=== PATIENT | male | born 1950 | race Caucasian/White ===

== ENCOUNTER → 2017-12-31 08:54 | Outpatient (CLI) | payer OTHER, SELFPAY ==
[2017-12-31 10:44] LABS: Add Manual Diff / Slide Review NO; Basophils Percent Auto 0.8 % (0-2); Eosinophils Percent Auto 2.3 % (2-4); Hematocrit 42.6 % (41-53); Hemoglobin 14.7 g/dL (13.5-17.5); Lymphocytes Percent Auto 21.3 % (25-40); Mean Corpuscular HGB Conc 34.4 % (30-36); Mean Corpuscular Volume 90.2 fL (80-100); Monocytes Percent Auto 8.7 % (3-14); Neutrophils Absolute Auto 4200 /uL (3000-5900); Neutrophils Percent Auto 66.9 % (50-75); Platelet Count 221 X10^3/uL (150-400); Red Blood Cell Count 4.72 X10^6/uL (4.5-5.9); Red Cell Distribution Width 13.3 % (11.6-14.8); White Blood Cell Count 6.2 X10^3/uL (4.5-11.0)
[2017-12-31 11:51] LABS: Blood Urea Nitrogen 16 mg/dL (9-20); Calcium 9.6 mg/dL (8.4-10.2); Carbon Dioxide 28 mmol/L (22-32); Chloride 103 mmol/L (98-107); Cholesterol 222 mg/dL (140-199); Estimated Glomerular Filt Rate > 60.0 mL/min (>60); Glucose 93 mg/dL (80-110); HDL Cholesterol 83 mg/dL (40-60); HEMOLYSIS < 15 (0-50); LDL Cholesterol Calculated 125 mg/dL (<100); Sodium 143 mmol/L (137-145); Triglycerides 71 mg/dL (35-150)
[2017-12-31 12:13] LABS: Prostate Specific Antigen Scrn 0.845 ng/mL (0.1-4.0)
== END ==
PROVIDERS: PCP Family Medicine; Visit Provider Family Medicine
DX: E78.2 Mixed hyperlipidemia (principal); N40.0 Benign prostatic hyperplasia without lower urinary tract symptoms
CPT/HCPCS: 36415; 80048; 80061; 84443; 85025; G0103

== ENCOUNTER 2018-04-23 11:53 | Day surgery (SDC) | payer OTHER, SELFPAY ==
--- NOTE | 2018-04-23 | PATH_ITS ---
[facility] Accession Number: [id number] . 01 Material submitted: . POLYP AT 70CM . 02 Diagnosis: Colon Polyp at 70 cm: Tubular adenoma. MRV/04/27/2018 . 02 Electronically signed: . Boone Montenegro MD, PhD, Pathologist NPI- [id number] . 01 Gross description: . Received in formalin, labeled polyp @70 cm, are two fragments of caldera tissue (0.1 x 0.1 x 0.1 cm and 0.3 x 0.2 x 0.1 cm). Filtered and entirely submitted in cassette A1. ([id number]) /[facility] . 02 Pathologist provided ICD-10: D12.6 . 02 CPT . 823711 Performed at: 01 [facility] [address] [place] [address], [place], [place] [id number] MD Chino Barney MD Phone: [phone] Performed at: 02 [facility] [address] [place], [place] [id number] MD Lebron Villanueva MD Phone: [phone]
[2018-04-23 12:27] VITALS: BP 140/88; PULSE 95; RESP 18; TEMP 36.5; O2SAT 100; BMI 19.5
[2018-04-23] MEDS: SODIUM CHLORIDE 0.9% 1,000 ML 200 ML IV (12:37)
--- NOTE | 2018-04-23 12:57 | P.HP_ITS ---
History of Present Illness Date Patient Seen: 04/23/18 Time Patient Seen: 12:55 Chief complaint: colonoscopy [id number] Narrative: 67-year-old male who presents for colorectal screening. It has been 12 years since his last examination. On further history today he denies any recent gastrointestinal symptoms. Denies nausea, vomiting, loss of appetite, unexplained weight loss, abdominal pain, change in bowel habits, diarrhea, constipation, melena, hematochezia, or bright red blood per rectum. Patient History Medical History Benign prostatic hyperplasia (Acute) History of urinary retention (Acute) Inguinal hernia (Acute) Osteopenia (Chronic) Tinnitus (Chronic ~1994) Chicken pox (Resolved ~1954) Measles (Resolved ~1956) Mumps (Resolved ~1957) Surgical History History of colonoscopy (Acute) History of orchiectomy, unilateral (Acute) Anesthesia (Resolved) Undescended testicle (Resolved ~1997) History of cataract removal with insertion of prosthetic lens (~2011) Family & Social History Family History: Reviewed 04/23/18 by Brooks Boyce MD Social History: household members spouse Tobacco & Substance use: Smoking Status Never smoker alcohol intake never Meds Home Medications Medication Instructions Recorded Confirmed Type ASCORBIC ACID (VITAMIN C) 1,000 mg PO PRN #0 11/21/11 01/05/18 History MULTIVITAMIN (One Daily 1 tab PO PRN #0 11/21/11 01/05/18 History Multivitamin) VITAMIN D (Vitamin D3) 1,000 unit PO PRN #0 11/21/11 01/05/18 History ASPIRIN (#ASPIRIN) 325 mg PO QDAY #0 10/12/12 04/23/18 History clotrimazole-betamethasone 1 [place] TOPICAL BID #30 gm 12/11/16 04/23/18 Rx [Lotrisone] alprazolam 0.25 mg PO QDAYP #90 tab 11/11/17 04/23/18 Rx fluorouracil 5 % topical cream 1 % TOP DAILY #40 gram 01/05/18 Rx Allergies Allergy/AdvReac Type Severity Reaction Status Date / Time No Known Drug Allergies Allergy Unverified 04/23/18 12:34 Review of Systems Review of Systems All systems reviewed & are unremarkable except as noted in HPI and below Exam Vital Signs (past 8 hours): - 04/23/18 12:27 Temperature 97.7 F Pulse Rate 95 H Respiratory Rate 18 Blood Pressure 140/88 Pulse Oximetry 100 Oxygen Delivery Method Room Air Narrative Exam Narrative: Well-nourished well-developed male in no acute distress. Alert oriented x3 Regular rate and rhythm No audible wheezes Abdomen soft, nondistended, nontender, no mass Extremities show no clubbing, cyanosis, or edema Objective Labs Labs: No recent laboratory or radiographic studies for review Assessment & Plan Plan: Assessment/Plan Narrative: 67-year-old male requiring colorectal screening since it has been 12 years from his prior examination. I recommend colonoscopy. Technical details of the procedure were discussed. Risks, benefits, alternatives were explained. Risks including but not limited to sedation, aspiration, bleeding, pain, missed lesion , incomplete examination, need for further radiographic studies, colonic perforation, need for major abdominal surgery, and all attendant risks of major surgery were explained in detail. All questions were answered to his satisfaction, and he voiced understanding. Consent was placed on the chart. We will proceed as above.
--- NOTE | 2018-04-23 12:57 | PM.PREOP ---
Pre-operative Note Interval Note Pre-op Check: Yes History & Physical Reviewed by Physician, Yes Exam Performed and Yes History & Physical exam performed today by Physician Changes: No H&P completed within 30 days and has changed as indicated here:: Patient seen and examined. History physical examination dictated and placed on the chart today. Proceed with colonoscopy as planned. ASA Class (for procedural sedation): II
[2018-04-23] MEDS: MIDAZOLAM 5 MG/5 ML VIAL IV (13:15)
[2018-04-23] MEDS: fentaNYL 250 MCG/5 ML INJ IV (13:16)
--- NOTE | 2018-04-23 13:23 | PM.OP.ENDO ---
Operative Date/Time/Diagnoses Date of procedure: 04/23/18 Time of procedure: 13:23 Pre-op diagnosis: Colorectal screening Post-op diagnosis: other (Colon polyp and diverticulosis) Procedure & Clinicians Study performed: 1. Sedation per surgeon 2. Colonoscopy with cold forceps polypectomy Same procedure as scheduled: Yes Indications: 67-year-old male who presents for colorectal screening. It has been 12 years since his last endoscopy. Colonoscopy is recommended currently. Surgeon: Brokos Boyce Procedure Notes SCOAP/Timeout: Yes Procedure in detail: After obtaining informed consent, the patient was brought to the GI suite and placed in the left lateral decubitus position on the examination table. After placement of appropriate monitors, the patient was given incremental doses of Versed and Fentanyl until an appropriate level of sedation was achieved. A time out was held per SCOAP protocol. A digital rectal examination was performed and did not reveal any masses or obstructing lesions. The colonoscope was gently passed into the patient's anus and the entire colon navigated to the level of the cecum with minimal difficulty. Terminal ileum was intubated and noted to be normal. Bowel preparation was excellent. Once in the cecum, the scope was withdrawn being sure to go before and beyond all mucosal folds and prominences and get an excellent examination. The findings are noted above. At the level of the rectal vault, the scope was retroflexed and the internal anal canal was examined. The scope was straightened and air aspirated from the colon. The instrument was removed from the patient's body and the procedure was concluded. The patient was allowed to awaken from sedation without difficulty and taken to the post-anesthesia care unit in good condition. Scope withdrawal time: 9:46 min Sedation minutes: 17 Findings: diverticulosis and polyp Specimen(s): other (Ascending colon polyp at 70 cm) Complications: none Recommendations: Colonscopy in 5 years, High fiber diet and Will call with biopsy results Plan for aftercare: 1. Discharged home Follow up: as needed Disposition: PACU
[2018-04-23 13:30] VITALS: BP 137/76; PULSE 70; RESP 16; TEMP 36.7; O2SAT 97
== END 2018-04-23 13:43 | disposition home or self-care (01) ==
PROVIDERS: Family Provider Family Medicine; PCP Family Medicine; Visit Provider Surgery
PROC: 0DJD8ZZ Inspection of Lower Intestinal Tract, Via Natural or Artificial Opening Endoscopic (ICD-10-PCS; CPT 45378; principal; 2018-04-23 13:00)
DX: Z12.11 Encounter for screening for malignant neoplasm of colon (principal); D12.2 Benign neoplasm of ascending colon; K57.30 Diverticulosis of large intestine without perforation or abscess without bleeding; N40.0 Benign prostatic hyperplasia without lower urinary tract symptoms; M85.80 Other specified disorders of bone density and structure, unspecified site; Z79.82 Long term (current) use of aspirin; Z79.899 Other long term (current) drug therapy
CPT/HCPCS: 45380; 99152; J2250; J3010

== ENCOUNTER → 2018-12-25 08:14 | Outpatient (CLI) | payer OTHER, SELFPAY ==
[2018-12-25 09:26] LABS: Add Manual Diff / Slide Review NO; Basophils Absolute Auto 0 /uL (0-100); Basophils Percent Auto 0.7 % (0-2); Eosinophils Absolute Auto 100 /uL (0-450); Eosinophils Percent Auto 2.3 % (2-4); Hematocrit 41.9 % (41-53); Hemoglobin 14.3 g/dL (13.5-17.5); Lymphocytes Absolute Auto 1100 /uL (1100-4500); Lymphocytes Percent Auto 21.1 % (25-40); Mean Corpuscular HGB Conc 34.1 % (30-36); Monocytes Absolute Auto 500 /uL (0-900); Monocytes Percent Auto 8.9 % (3-14); Neutrophils Absolute Auto 3600 /uL (1500-7000); Platelet Count 223 X10^3/uL (150-400); Red Cell Distribution Width 12.9 % (11.6-14.8); White Blood Cell Count 5.3 X10^3/uL (4.5-11.0)
[2018-12-25 09:49] LABS: Alanine Aminotransferase 23 IU/L (21-72); Albumin 4.3 g/dL (3.5-5.0); Albumin Globulin Ratio 1.5 (1.0-2.8); Alkaline Phosphatase 55 U/L (38-126); Aspartate Aminotransferase 25 IU/L (17-59); Bilirubin Total 2.5 mg/dL (0.2-1.3); Blood Urea Nitrogen 20 mg/dL (9-20); Calcium 9.6 mg/dL (8.4-10.2); Carbon Dioxide 28 mmol/L (22-32); Chloride 103 mmol/L (98-107); Cholesterol 192 mg/dL (140-199); Estimated Glomerular Filt Rate > 60.0 mL/min (>60); Globulin 2.9 g/dL (1.7-4.1); Glucose 95 mg/dL (80-110); HDL Cholesterol 72 mg/dL (40-60); HEMOLYSIS < 15 (0-50); LDL Cholesterol Calculated 109 mg/dL (<100); Potassium 4.2 mmol/L (3.4-5.1); Sodium 140 mmol/L (137-145); Total Protein 7.2 g/dL (6.3-8.2); Triglycerides 56 mg/dL (35-150)
[2018-12-25 10:17] LABS: Prostate Specific Antigen Scrn 0.992 ng/mL (0.1-4.0)
[2018-12-25 10:18] LABS: TSH w/ Reflex to FT4 1.69 uIU/mL (0.47-4.68)
== END ==
PROVIDERS: Family Provider Family Medicine; PCP Family Medicine; Visit Provider Family Medicine
DX: E78.2 Mixed hyperlipidemia (principal); I10 Essential (primary) hypertension; N40.0 Benign prostatic hyperplasia without lower urinary tract symptoms; Z12.5 Encounter for screening for malignant neoplasm of prostate
CPT/HCPCS: 36415; 80053; 80061; 84443; 85025; G0103

== ENCOUNTER → 2019-09-12 10:02 | Outpatient (CLI) | payer OTHER, SELFPAY ==
--- NOTE | 2019-09-12 10:03 | DI.RAD.S_ITS ---
PROCEDURE: XR RIBS LT MIN 3V W CXR1V INDICATIONS: l rib pain TECHNIQUE: 4 views of the left ribs were acquired, along with a single view chest. COMPARISON: [facility], , CHEST 2 VIEW, 04/18/2011, 12:42. FINDINGS: Surgical changes and devices: None. Bones and chest wall: No displaced left fractures or dislocations. No suspicious bony lesions. Overlying soft tissues appear unremarkable. Lungs and pleura: No pleural effusions or pneumothorax. Lungs appear clear. Mediastinum: Mediastinal contours appear normal. Heart size is normal. IMPRESSION: No displaced left rib fractures are evident. Dictated by: Juan Dunn M.D. on 09/12/2019 at 9:32 Approved by: Juan Dunn M.D. on 09/12/2019 at 9:44
== END ==
PROVIDERS: Family Provider Family Medicine; PCP Family Medicine; Referring Provider Physician Assistant; Visit Provider Physician Assistant
DX: R07.81 Pleurodynia (principal)
CPT/HCPCS: 71101

== ENCOUNTER 2019-10-05 08:28 | Day surgery (SDC) | payer OTHER, SELFPAY ==
[2019-10-04 10:41] VITALS: BMI 20.4
[2019-10-05] VITALS (9 sets, daily range): BP systolic 145–165; BP diastolic 75–92; PULSE 47–84; RESP 10–16; TEMP 36.2–37.2; O2SAT 97–100; BMI 19.9
--- NOTE | 2019-10-05 | PATH_ITS ---
[facility] Accession Number: [id number] . 01 Material submitted: . hernia - HERNIA SAC . 02 Diagnosis: Hernia Sac, Excision: Fibroadipose tissue and skeletal muscle, consistent with hernia sac. No evidence of neoplasm. MRV 10/07/2019 1332 Local . 02 Electronically signed: . Boone Montenegro MD, PhD, Pathologist NPI- [id number] . 01 Gross description: . Received in formalin, labeled hernia sac, is a piece of fregoso-caldera, semi-translucent, rubbery tissue (4.5 x 1.5 x 0.2 cm). Peeler Operator tissue is submitted in cassette A1. ([id number]) /MRV 10/06/2019 1419 Local . 02 Pathologist provided ICD-10: K46.9 . 02 CPT . 345146 Performed at: 01 [facility] [address] [facility], [place], [place] [id number] MD Chino Barney MD Phone: [phone] Performed at: 02 [facility] [address] [place], [place] [id number] MD Jaylene Vo MD Phone: [phone]
[2019-10-05] MEDS: LACTATED RINGERS 1,000 ML 42 ML IV ×2 (08:59→11:22)
--- NOTE | 2019-10-05 09:54 | PM.HP.1 ---
History of Present Illness History of Present Illness Date Patient Seen: 10/05/19 Time Patient Seen: 09:54 Chief complaint: [id number] Narrative: 10/05/19-no interval changes in health. Feeling well today without complaints. Continues to have a symptomatic right inguinal hernia. 07/21/19- 68-year-old male with a symptomatic slowly enlarging right inguinal hernia. He presents for evaluation after referral by his primary care provider. His a reducible groin hernia that is becoming uncomfortable when he coughs or strains. No episodes of hernia incarceration. His surgical history is significant for left-sided orchiectomy for undescended testicle, no other prior abdominal surgeries. No history of coronary artery disease, valvular disease, arrhythmia, peripheral vascular disease, diabetes, stroke, pulmonary or renal insufficiency. They are a nonsmoker and not on anticoagulation Patient History Medical History Anxiety (Acute) Benign prostatic hyperplasia (Acute) Chicken pox (Resolved ~1954) Diverticulosis (Acute) Enlarged prostate (Acute) Heart murmur (Acute) History of urinary retention (Acute) Inguinal hernia (Acute) Irregular heartbeat (Acute) Left shoulder strain (Acute) Measles (Resolved ~1956) Mumps (Resolved ~1957) Osteopenia (Chronic) Tinnitus (Chronic ~1994) Surgical History Anesthesia (Resolved) History of cataract removal with insertion of prosthetic lens (~2011) History of colonoscopy (Acute) History of orchiectomy, unilateral (Acute) Undescended testicle (Resolved ~1997) Family & Social History Family History Father Heart disease Mother No problems noted. Sister No problems noted. Sister No problems noted. Social History: household members spouse Tobacco & Substance use: Smoking Status Never smoker alcohol intake current alcohol intake frequency holiday/special occasion Substance Use Type marijuana Meds Home Medications and Allergies Home Medications Medication Instructions Recorded Confirmed Type tadalafil 5 mg tablet 5 mg PO DAILY #90 tab 07/05/19 10/05/19 Rx clotrimazole-betamethasone 1 1 applictn TOPICAL BID #30 gram 10/01/19 10/05/19 Rx %-0.05 % topical cream alprazolam 0.5 mg PO QDAYP PRN 10/04/19 10/05/19 History Allergies Allergy/AdvReac Type Severity Reaction Status Date / Time fluorouracil [From Efudex] AdvReac Unknown Dizziness Verified 10/05/19 08:38 Review of Systems Review of Systems Narrative: A 10 point review of systems is negative except as noted in the HPI Exam Vital Signs (past 8 hours): - 10/05/19 08:50 Temperature 98.9 F Pulse Rate 84 Respiratory Rate 15 Blood Pressure 145/83 H Pulse Oximetry 100 Oxygen Delivery Method Room Air Narrative Exam Narrative: General-no acute distress, well nourished HEENT-moist mucous membranes, no scleral icterus Neck-supple, no lymphadenopathy Chest- non labored respirations, clear to auscultation bilaterally Cardiac-regular rate no peripheral edema Abdomen-soft, nontender, non distended Extremities-warm, well perfused Neurological-alert and oriented, no focal deficits Assessment & Plan Assessment and plan (1) Right inguinal hernia: Current visit: No Status: Acute Assessment & Plan narrative: 68-year-old male with a symptomatic reducible right inguinal hernia. We discussed the nature of hernia disease and surgical therapy. I offered him a open right inguinal hernia repair with mesh. We discussed the risks of the operation including bleeding infection chronic pain testicular ischemia recurrence. His questions have been answered and he is in agreement with this plan.
[2019-10-05] MEDS: CEFAZOLIN 2 GM/100 ML FROZ.PIGGY IV (10:04)
--- NOTE | 2019-10-05 10:24 | SUR.OPER ---
Supine on padded OR bed, head on pillow, arms secured on padded arm boards at <90 degrees abduction, legs uncrossed, safety belt at thigh, tape over blanket over lower legs.
[2019-10-05] MEDS: BUPIVACAINE 0.25% (PF) VIAL 30 ML INJ (10:36)
--- NOTE | 2019-10-05 11:37 | PM.OP.1 ---
Operative Date/Time/Diagnoses Date of procedure: 10/05/19 Time of procedure: 11:37 Pre-op diagnosis: Right inguinal hernia Post-op diagnosis: same Procedure & Clinicians Procedure: Open right inguinal hernia repair with mesh, modified [place] repair Same procedure as scheduled: Yes Indications: Symptomatic right inguinal hernia Surgeon: Erik Brown Click Yes if Unassisted: Yes Anesthesia Type: General Operative Notes Findings: Large direct defect, small indirect defect, right Specimen(s): other (Hernia sac) Estimated Blood Loss (mL): 10 Procedure in detail: The patient was brought to the operating room and placed supine on the table. Bilateral lower extremity compression devices were applied. General anesthesia was induced and there were intubated with an LMA. There were then prepped and draped in usual sterile fashion. They received 2 g of Ancef prior to skin incision. A time-out was performed ensure the correct patient procedure necessary equipment within the operating room. 2 finger breath above the right inguinal ligament the skin was infiltrated with 0.25% bupivacaine. The skin incision was made here and the subcutaneous tissues were divided with electrocautery. The external oblique aponeurosis was exposed. The external oblique aponeurosis was then opened along the direction of its fibers. The ilioinguinal nerve was identified on the anterior aspect of the cord and protected. The cord was identified and was freed from the floor of the inguinal canal at its medial aspect. The cord was then swept swept out of the way with the Brent drain. A large direct floor defect was identified. The cord was then skeletonized. The vas deferens and the testicular vessels were preserved and protected. There was an indirect hernia on the anterior medial aspect of the cord which was skeletonized away from the vas deferens and testicular blood supply. This indirect hernia was skeletonized back to the internal ring. The hernia sac was ligated with 3 0 Vicryl and then excised passed off the field as specimen, the proximal hernia sac reduced easily back through the internal ring. The floor was reapproximated using interrupted 0 Prolene suture going from the inferior aspect of the inguinal ligament to the transversalis fascia. I selected the large Pro Loop hernia mesh. The inferior medial aspect of the mesh was anchored to the periosteum of the pubic tubercle with 0 Prolene and then was run continuously along the inferior edge of the mesh to the shelving edge of the inguinal ligament. Interrupted 0 Prolene suture was used to anchor the superior aspect of the mesh to the conjoined tendon in several places. The tails were then reapproximated around the spermatic cord loosely. The tails of the mesh were then tucked under the external oblique aponeurosis. The repair was checked for hemostasis. The wound was irrigated with sterile saline. The external oblique aponeurosis was reapproximated in a running fashion using 3 0 Vicryl. The subcutaneous tissues were reapproximated with 3 0 Vicryl skin closed with 4 0 Monocryl followed by the application of Dermabond. At the end of the operation ensure that both testicles were within the scrotum. The sponge instrument count at the end operation was correct. The patient emerged from anesthesia was extubated and transferred to the postoperative care unit in stable condition Complications: none Post-operative Condition: stable Disposition: same day surgery
[2019-10-05] MEDS: ONDANSETRON 4 MG/2 ML INJ IV (11:50)
[2019-10-05] MEDS: OXYCODONE/ACETAMINOPHEN 5/325 TABLET 1 TAB PO (11:50)
[2019-10-05] MEDS: KETOROLAC 30 MG/ML VIAL IV (11:53)
--- NOTE | 2019-10-05 12:42 | SUR.PHASEII ---
Assisted patient to bathroom to void prior to D/C. Home with in stable condition.
== END 2019-10-05 12:43 | disposition home or self-care (01) ==
PROVIDERS: PCP Family Medicine; Referring Provider Surgery; Visit Provider Surgery
PROC: (CPT 49505; principal; 2019-10-05 09:45)
DX: K40.90 Unilateral inguinal hernia, without obstruction or gangrene, not specified as recurrent (principal)
CPT/HCPCS: 49505; C1781; J0690; J1100; J1885; J2250; J2405; J2704; J3010

== ENCOUNTER → 2020-03-08 08:49 | Outpatient (CLI) | payer OTHER, SELFPAY ==
[2020-03-08 09:32] LABS: Add Manual Diff / Slide Review NO; Basophils Absolute Auto 0 /uL (0-100); Basophils Percent Auto 0.7 % (0-2); Eosinophils Absolute Auto 100 /uL (0-450); Eosinophils Percent Auto 2.2 % (2-4); Hematocrit 42.3 % (41-53); Hemoglobin 14.2 g/dL (13.5-17.5); Lymphocytes Absolute Auto 1100 /uL (1100-4500); Lymphocytes Percent Auto 20.7 % (25-40); Mean Corpuscular HGB Conc 33.6 % (30-36); Mean Corpuscular Hemoglobin 30.7 PG (26-34); Mean Corpuscular Volume 91.4 fL (80-100); Monocytes Absolute Auto 500 /uL (0-900); Monocytes Percent Auto 9.4 % (3-14); Neutrophils Absolute Auto 3600 /uL (1500-7000); Platelet Count 221 X10^3/uL (150-400); Red Blood Cell Count 4.63 X10^6/uL (4.5-5.9); Red Cell Distribution Width 12.9 % (11.6-14.8); White Blood Cell Count 5.4 X10^3/uL (4.5-11.0)
[2020-03-08 09:37] LABS: Alanine Aminotransferase 16 IU/L (<50); Albumin 4.4 g/dL (3.5-5.0); Albumin Globulin Ratio 1.7 (1.0-2.8); Alkaline Phosphatase 62 U/L (38-126); Aspartate Aminotransferase 24 IU/L (17-59); BUN Creatinine Ratio 19.2 (6-22); Bilirubin Total 2.4 mg/dL (0.2-1.3); Blood Urea Nitrogen 19 mg/dL (9-20); Calcium 9.8 mg/dL (8.4-10.2); Carbon Dioxide 29 mmol/L (22-32); Chloride 105 mmol/L (98-107); Cholesterol 206 mg/dL (140-199); Estimated Glomerular Filt Rate > 60.0 mL/min (>60); Globulin 2.6 g/dL (1.7-4.1); Glucose 94 mg/dL (80-110); HDL Cholesterol 84 mg/dL (40-60); HEMOLYSIS < 15 (0-50); LDL Cholesterol Calculated 108 mg/dL (<100); Potassium 4.5 mmol/L (3.4-5.1); Sodium 138 mmol/L (137-145); Triglycerides 68 mg/dL (35-150)
[2020-03-08 10:01] LABS: TSH w/ Reflex to FT4 1.29 uIU/mL (0.47-4.68)
[2020-03-08 10:02] LABS: Prostate Specific Antigen Scrn 0.986 ng/mL (0.1-4.0)
== END ==
PROVIDERS: PCP Family Medicine; Referring Provider Family Medicine; Visit Provider Family Medicine
DX: E78.2 Mixed hyperlipidemia (principal); I10 Essential (primary) hypertension; N40.0 Benign prostatic hyperplasia without lower urinary tract symptoms; Z12.5 Encounter for screening for malignant neoplasm of prostate
CPT/HCPCS: 36415; 80053; 80061; 84443; 85025; G0103

== ENCOUNTER → 2020-06-17 11:30 | Outpatient (CLI) | payer OTHER, SELFPAY ==
[2020-06-17 12:21] LABS: COVID19 -Nasal RAPID Negative (Negative)
== END ==
PROVIDERS: PCP Family Medicine; Visit Provider Physician Assistant
DX: Z11.59 Encounter for screening for other viral diseases (principal)
CPT/HCPCS: 87635

== ENCOUNTER → 2021-01-09 14:16 | Outpatient (CLI) | payer OTHER, SELFPAY ==
[2021-01-10 15:43] LABS: Interpretation Negative (Negative)
== END ==
PROVIDERS: PCP Family Medicine; Referring Provider Family Medicine; Visit Provider Family Medicine
DX: E11.9 Type 2 diabetes mellitus without complications (principal); K21.9 Gastro-esophageal reflux disease without esophagitis
CPT/HCPCS: 83013

== ENCOUNTER → 2021-06-20 12:43 | Outpatient (CLI) | payer OTHER, SELFPAY ==
--- NOTE | 2021-06-20 12:43 | DI.RAD.S_ITS ---
PROCEDURE: FL BARIUM SWALLOW INDICATIONS: Recurrent reflux; sore throat R side COMPARISON: None. FINDINGS: Function: There is mildly decreased esophageal peristalsis. No elicited gastroesophageal reflux. Morphology: Air-contrast images demonstrate normal mucosal morphology. Single contrast views show no esophageal strictures, extrinsic mass effects, or diverticula. Limited images of the stomach demonstrate normal appearance. IMPRESSION: Esophageal dysmotility Dictated by: Lorenzo Wesley M.D. on 06/20/2021 at 14:07 Approved by: Lorenzo Wesley M.D. on 06/20/2021 at 14:09
== END ==
PROVIDERS: PCP Family Medicine; Referring Provider Physician Assistant; Visit Provider Physician Assistant
DX: K21.9 Gastro-esophageal reflux disease without esophagitis (principal); K22.4 Dyskinesia of esophagus
CPT/HCPCS: 74220

== ENCOUNTER → 2021-09-15 08:24 | Outpatient (CLI) | payer MEDICARE, SELFPAY ==
[2021-09-15 11:38] LABS: Alanine Aminotransferase 14 IU/L (<50); Albumin 4.2 g/dL (3.5-5.0); Albumin Globulin Ratio 1.6 (1.0-2.8); Alkaline Phosphatase 53 U/L (38-126); Aspartate Aminotransferase 24 IU/L (17-59); BUN Creatinine Ratio 16.5 (6-22); Bilirubin Total 1.7 mg/dL (0.2-1.3); Blood Urea Nitrogen 18 mg/dL (9-20); Calcium 9.5 mg/dL (8.4-10.2); Carbon Dioxide 28 mmol/L (22-32); Chloride 107 mmol/L (98-107); Cholesterol 205 mg/dL (140-199); Estimated Glomerular Filt Rate > 60.0 mL/min (>60); Globulin 2.7 g/dL (1.7-4.1); Glucose 100 mg/dL (80-110); HDL Cholesterol 81 mg/dL (40-60); HEMOLYSIS < 15 (0-50); LDL Cholesterol Calculated 114 mg/dL (<100); Potassium 4.5 mmol/L (3.4-5.1); Sodium 140 mmol/L (137-145); Total Protein 6.9 g/dL (6.3-8.2); Triglycerides 50 mg/dL (35-150)
== END ==
PROVIDERS: PCP Family Medicine; Referring Provider Physician Assistant; Visit Provider Physician Assistant
DX: E78.2 Mixed hyperlipidemia (principal)
CPT/HCPCS: 36415; 80053; 80061

== ENCOUNTER → 2021-09-19 13:13 | Outpatient (CLI) | payer MEDICARE, SELFPAY ==
[2021-09-19 14:17] LABS: Add Manual Diff / Slide Review NO; Basophils Absolute Auto 0 /uL (0-100); Basophils Percent Auto 0.6 % (0-2); Eosinophils Absolute Auto 100 /uL (0-450); Eosinophils Percent Auto 0.9 % (2-4); Lymphocytes Absolute Auto 1000 /uL (1100-4500); Lymphocytes Percent Auto 18.6 % (25-40); Mean Corpuscular HGB Conc 34.2 % (30-36); Mean Corpuscular Hemoglobin 31.1 PG (26-34); Mean Corpuscular Volume 90.9 fL (80-100); Monocytes Absolute Auto 500 /uL (0-900); Monocytes Percent Auto 9.2 % (3-14); Neutrophils Absolute Auto 4000 /uL (1500-7000); Neutrophils Percent Auto 70.7 % (50-75); Platelet Count 232 X10^3/uL (150-400); Red Blood Cell Count 4.51 X10^6/uL (4.5-5.9); Red Cell Distribution Width 13.3 % (11.6-14.8); White Blood Cell Count 5.6 X10^3/uL (4.5-11.0)
[2021-09-19 15:08] LABS: TSH w/ Reflex to FT4 1.25 uIU/mL (0.47-4.68)
[2021-09-19 15:09] LABS: Prostate Specific Antigen Scrn 0.925 ng/mL (0.1-4.0)
== END ==
PROVIDERS: PCP Family Medicine; Referring Provider Family Medicine; Visit Provider Family Medicine
DX: E78.2 Mixed hyperlipidemia (principal); Z12.5 Encounter for screening for malignant neoplasm of prostate; N40.0 Benign prostatic hyperplasia without lower urinary tract symptoms
CPT/HCPCS: 36415; 84443; 85025; G0103

== ENCOUNTER → 2021-10-24 12:56 | Outpatient (CLI) | payer MEDICARE, SELFPAY | PROVIDERS: PCP Family Medicine; Referring Provider Family Medicine; Visit Provider Family Medicine | DX: Z01.84 Encounter for antibody response examination (principal); Z20.822 Contact with and (suspected) exposure to COVID-19 | CPT/HCPCS: 36415; 86769 ==

== ENCOUNTER → 2022-07-11 10:26 | Outpatient (CLI) | payer MEDICARE, SELFPAY ==
[2022-07-11 11:01] LABS: Add Manual Diff / Slide Review NO; Basophils Absolute Auto 0 /uL (0-100); Basophils Percent Auto 0.6 % (0-2); Eosinophils Absolute Auto 100 /uL (0-450); Eosinophils Percent Auto 1.3 % (2-4); Hematocrit 42.1 % (41-53); Hemoglobin 14.6 g/dL (13.5-17.5); Lymphocytes Absolute Auto 900 /uL (1100-4500); Lymphocytes Percent Auto 16.4 % (25-40); Mean Corpuscular HGB Conc 34.6 % (30-36); Mean Corpuscular Hemoglobin 30.8 PG (26-34); Mean Corpuscular Volume 89.2 fL (80-100); Monocytes Absolute Auto 600 /uL (0-900); Monocytes Percent Auto 9.9 % (3-14); Neutrophils Absolute Auto 4100 /uL (1500-7000); Neutrophils Percent Auto 71.8 % (50-75); Platelet Count 241 X10^3/uL (150-400); Red Blood Cell Count 4.72 X10^6/uL (4.5-5.9); Red Cell Distribution Width 13.2 % (11.6-14.8); White Blood Cell Count 5.7 X10^3/uL (4.5-11.0)
[2022-07-11 11:16] LABS: Alanine Aminotransferase 20 IU/L (<50); Albumin 4.4 g/dL (3.5-5.0); Albumin Globulin Ratio 1.4 (1.0-2.8); Alkaline Phosphatase 64 U/L (38-126); Aspartate Aminotransferase 24 IU/L (17-59); BUN Creatinine Ratio 18.4 (6-22); Blood Urea Nitrogen 18 mg/dL (9-20); Calcium 9.4 mg/dL (8.4-10.2); Carbon Dioxide 28 mmol/L (22-32); Chloride 103 mmol/L (98-107); Estimated Glomerular Filt Rate > 60 mL/min (>60); Globulin 3.2 g/dL (1.7-4.1); Glucose 78 mg/dL (80-110); HEMOLYSIS < 15 (0-50); Potassium 4.3 mmol/L (3.4-5.1); Sodium 140 mmol/L (137-145); Total Protein 7.6 g/dL (6.3-8.2)
[2022-07-11 11:44] LABS: TSH w/ Reflex to FT4 1.23 uIU/mL (0.47-4.68)
== END ==
PROVIDERS: PCP Family Medicine; Referring Provider Family Medicine; Visit Provider Family Medicine
DX: R42 Dizziness and giddiness (principal)
CPT/HCPCS: 36415; 80053; 84443; 85025

== ENCOUNTER → 2022-12-18 08:26 | Outpatient (CLI) | payer MEDICARE, SELFPAY ==
[2022-12-18 10:50] LABS: Cholesterol 205 mg/dL (140-199); HDL Cholesterol 86 mg/dL (40-60); LDL Cholesterol Calculated 108 mg/dL (<100); Triglycerides 57 mg/dL (35-150)
[2022-12-18 11:21] LABS: Prostate Specific Antigen Scrn 0.867 ng/mL (0.1-4.0)
== END ==
PROVIDERS: PCP Family Medicine; Referring Provider Family Medicine; Visit Provider Family Medicine
DX: E78.2 Mixed hyperlipidemia (principal); Z12.5 Encounter for screening for malignant neoplasm of prostate; N40.1 Benign prostatic hyperplasia with lower urinary tract symptoms; R35.1 Nocturia; Z79.899 Other long term (current) drug therapy
CPT/HCPCS: 36415; 80061; G0103

== ENCOUNTER 2023-03-04 09:51 | Emergency (ER) | payer MEDICARE, SELFPAY ==
[2023-03-04] VITALS (9 sets, daily range): BP systolic 155–189; BP diastolic 69–82; PULSE 56–72; RESP 11–18; TEMP 36.2; O2SAT 99–100; BMI 19.8
--- NOTE | 2023-03-04 09:59 | DI.RAD.S_ITS ---
PROCEDURE: XR CHEST 1V INDICATIONS: chest pain TECHNIQUE: One view of the chest was acquired. COMPARISON: [facility], , CHEST 2 VIEW, 04/18/2011, 12:42. FINDINGS: Surgical changes and devices: None. Lungs and pleura: Lungs are clear. No pleural effusions or pneumothorax. Redemonstration of hyperaeration with flattening of the hemidiaphragms. Mediastinum: Mediastinal contours appear normal. Heart size is normal. Bones and chest wall: No suspicious bony lesions. Overlying soft tissues appear unremarkable. IMPRESSION: Stable radiographic evaluation of the chest without acute cardiopulmonary abnormalities or focal airspace disease. Redemonstration of findings suggestive of chronic obstructive pulmonary physiology. Dictated by: Ramone Soto M.D. on 03/04/2023 at 10:20 Approved by: Ramone Soto M.D. on 03/04/2023 at 10:20
[2023-03-04] MEDS: ASPIRIN 81 MG CHEW TAB 324 MG PO (10:09)
[2023-03-04 10:15] LABS: Add Manual Diff / Slide Review NO; Basophils Absolute Auto 0 /uL (0-100); Basophils Percent Auto 0.9 % (0-2); Eosinophils Absolute Auto 100 /uL (0-450); Eosinophils Percent Auto 2.6 % (2-4); Hematocrit 40.7 % (41-53); Lymphocytes Absolute Auto 1100 /uL (1100-4500); Lymphocytes Percent Auto 21.6 % (25-40); Mean Corpuscular HGB Conc 34.4 % (30-36); Mean Corpuscular Volume 90.1 fL (80-100); Monocytes Absolute Auto 500 /uL (0-900); Monocytes Percent Auto 9.5 % (3-14); Neutrophils Absolute Auto 3400 /uL (1500-7000); Neutrophils Percent Auto 65.4 % (50-75); Platelet Count 229 X10^3/uL (150-400); Red Blood Cell Count 4.52 X10^6/uL (4.5-5.9); Red Cell Distribution Width 13.5 % (11.6-14.8); White Blood Cell Count 5.2 X10^3/uL (4.5-11.0)
[2023-03-04 10:16] LABS: Prothrombin Time 11.3 SECONDS (10.1-12.7)
[2023-03-04 10:19] LABS: PTT Partial Thromboplastin Tim 31 SECONDS (26-36)
[2023-03-04 10:23] LABS: Alanine Aminotransferase 21 IU/L (<50); Albumin 4.2 g/dL (3.5-5.0); Albumin Globulin Ratio 1.3 (1.0-2.8); Alkaline Phosphatase 78 U/L (38-126); Aspartate Aminotransferase 23 IU/L (17-59); BUN Creatinine Ratio 15.5 (6-22); Bilirubin Total 1.5 mg/dL (0.2-1.3); Blood Urea Nitrogen 15 mg/dL (9-20); Calcium 9.2 mg/dL (8.4-10.2); Carbon Dioxide 27 mmol/L (22-32); Chloride 103 mmol/L (98-107); Creatine Kinase 59 U/L (55-170); Estimated Glomerular Filt Rate > 60 mL/min (>60); Globulin 3.3 g/dL (1.7-4.1); Glucose 133 mg/dL (80-110); HEMOLYSIS < 15 (0-50); Lipase 573 U/L (23-300); Magnesium 2.1 mg/dL (1.6-2.3); Potassium 3.8 mmol/L (3.4-5.1); Sodium 136 mmol/L (137-145); Total Protein 7.5 g/dL (6.3-8.2)
[2023-03-04 10:34] LABS: Troponin I < 0.012 ng/mL (0.01-0.034)
--- NOTE | 2023-03-04 11:00 | ED.ARRPALP ---
HPI - Arrhythmia/Palpitations <Adwoa Mejía PA-C - Last Filed: 03/04/23 11:54> General Chief Complaint: Arrhythmia/Palpitations Stated Complaint: DR sent heart palp on & off T-14 Time Seen by Provider: 03/04/23 10:13 Source: patient Mode of arrival: Ambulatory History of Present Illness HPI narrative: 72-year-old male with history of hyperlipidemia, chronic GERD, CAD white coat syndrome presents with concern for palpitations. Patient states that he has had a heart rhythm that causes occasional palpitations or any irregular beat for a long time according to his PCP but that a month or so ago he felt he was starting to notice this happen more frequently he became ill with COVID on February 06 and during this. He felt he was having these palpitations symptoms more frequently he says he has been feeling pretty much back to himself and generally better has been biking and active lately, he is not at 100% but almost back to normal as of a week ago and yet he is still having periods where he feels like he is having these palpitations he describes it as a fluttering or palpitating feeling in his heart that he associates with a little bit of chest tightness but no actual pain, he states sometimes this lasts for up to an hour intermittently and then seems to resolve on its own. He is noticed it is present sometimes in the morning when he gets up but then goes away. The last few days he has been taking Nexium as he thinks he may have been having some heartburn recently. He states the palpitations symptoms do feel similar to what he is had in the past is just that they are happening more frequently than he remembers-he has not seen Cardiology for this. He has not had any nausea, chest pain, shortness of breath, persistent cough, vomiting, diarrhea, abdominal pain, back pain or any other symptoms associated with this. Related Data Previous Rx's Medication Instructions Recorded alprazolam 0.25 mg tablet 0.25 mg PO QDAYP PRN Anxiety #30 11/04/22 tabs tadalafil 5 mg tablet See Rx Instructions .Route 01/17/23 .COMPLEX #90 tabs Allergies Allergy/AdvReac Type Severity Reaction Status Date / Time fluorouracil [From Efudex] AdvReac Unknown Dizziness Verified 03/04/23 10:03 Review of Systems <Adwoa Mejía PA-C - Last Filed: 03/04/23 11:54> Review of Systems Narrative: See HPI Patient History <Adwoa Mejía PA-C - Last Filed: 03/04/23 11:54> Medical History Acute sore throat Anxiety Benign prostatic hyperplasia Chicken pox (~1954) Diverticulosis Dizzy spells Enlarged prostate Heart murmur History of urinary retention Inguinal hernia Irregular heartbeat Left shoulder strain Measles (~1956) Mumps (~1957) Osteopenia Retinal and vitreous disorder Rib pain on left side Right foot pain Right inguinal hernia Tinnitus (~1994) Surgical History Anesthesia History of cataract removal with insertion of prosthetic lens (~2011) History of colonoscopy History of orchiectomy, unilateral Undescended testicle (~1997) Family History Father Heart disease Mother No problems noted. Sister No problems noted. Sister No problems noted. Social History marital status: household members: spouse Smoking Status: Never smoker alcohol intake: current substance use type: does not use Smoking Status: Never smoker alcohol intake frequency: holidays/special occasions only Substance Use Type: marijuana Exam <Adwoa Mejía PA-C - Last Filed: 03/04/23 11:54> Narrative Exam Narrative: GENERAL: 72 year old patient appears stated age. Well-developed patient, in mild distress. HEAD: Atraumatic. Normocephalic. EYES: Pupils equal round and reactive. Extraocular motions intact. No scleral icterus. No injection or drainage. ENT: Nose without bleeding, purulent drainage. Airway patent. NECK: Trachea midline. Non tender CARDIOVASCULAR: Regular rate and rhythm without murmurs, gallops, or rubs. RESPIRATORY: Clear to auscultation. Breath sounds equal bilaterally. No wheezes, rales, or rhonchi. GASTROINTESTINAL: Abdomen soft, non-tender, nondistended. EXTREMITIES: No edema or joint tenderness. BACK: Nontender without deformity or crepitance. No flank tenderness. NEURO: AOx3. SKIN: No rash or erythema of visible areas Initial Vital Signs Initial Vital Signs: Vital Signs Temperature 97.1 F L 03/04/23 09:55 Pulse Rate 66 03/04/23 09:55 Respiratory Rate 18 03/04/23 09:55 Blood Pressure 178/81 H 03/04/23 09:55 Pulse Oximetry 99 03/04/23 09:55 Oxygen Delivery Method Room Air 03/04/23 09:55 <Sahil Lockhart MD - Last Filed: 03/04/23 12:21> Initial Vital Signs Initial Vital Signs: Vital Signs Temperature 97.1 F L 03/04/23 09:55 Pulse Rate 66 03/04/23 09:55 Respiratory Rate 18 03/04/23 09:55 Blood Pressure 178/81 H 03/04/23 09:55 Pulse Oximetry 99 03/04/23 09:55 Oxygen Delivery Method Room Air 03/04/23 09:55 Scores <Adwoa Mejía PA-C - Last Filed: 03/04/23 11:54> HEART Score Heart Score history: Slightly Suspicious Heart Score EKG: Non-Specific repolarization disturbance Heart Score Age: > or = 65 years old Heart Score risk factors: 1-2 risk factors Heart Score troponin: < or = to normal limit Heart Score Total: 4 <Sahil Lockhart MD - Last Filed: 03/04/23 12:21> HEART Score Heart Score Total: 4 Course <Adwoa Mjeía PA-C - Last Filed: 03/04/23 11:54> Orders Ordered: ED Orders 03/04/23 09:59 XR chest 1V Stat EKG-12 Lead Stat 03/04/23 10:00 Complete Blood Count AUTO DIFF Stat Comprehensive Metabolic Panel Stat Lipase Stat Magnesium Stat PTT Partial Thromboplastin Jose Stat Prothrombin Time INR Stat Troponin & CK Cardiac Panel Stat Discontinued Medications Aspirin (Aspirin 81 Mg Chew Tab) 324 mg PO NOW ONE Stop: 03/04/23 10:00 Last Admin: 03/04/23 10:09 Dose: 324 mg Documented By: AMV Vital Signs Vital signs: Vital Signs - 8 hr 03/04/23 09:55 03/04/23 09:57 03/04/23 09:58 Temperature 97.1 F L Pulse Rate 66 72 Respiratory Rate 18 16 Blood Pressure 178/81 H 189/82 H Pulse Oximetry 99 99 Oxygen Delivery Method Room Air 03/04/23 09:58 03/04/23 10:00 03/04/23 10:00 Temperature Pulse Rate 69 65 Respiratory Rate 14 15 Blood Pressure 178/81 H Pulse Oximetry 100 100 Oxygen Delivery Method 03/04/23 10:15 03/04/23 10:15 03/04/23 10:30 Temperature Pulse Rate 64 Respiratory Rate Blood Pressure 155/69 H 155/78 H Pulse Oximetry 100 Oxygen Delivery Method 03/04/23 10:30 03/04/23 10:45 03/04/23 10:45 Temperature Pulse Rate 63 63 Respiratory Rate 13 14 Blood Pressure 155/75 H Pulse Oximetry 100 100 Oxygen Delivery Method 03/04/23 11:13 03/04/23 11:30 Temperature Pulse Rate 67 56 L Respiratory Rate 11 L Blood Pressure Pulse Oximetry 99 Oxygen Delivery Method Room Air <Sahil Lockhart MD - Last Filed: 03/04/23 12:21> Orders Ordered: ED Orders 03/04/23 09:59 XR chest 1V Stat EKG-12 Lead Stat 03/04/23 10:00 Complete Blood Count AUTO DIFF Stat Comprehensive Metabolic Panel Stat Lipase Stat Magnesium Stat PTT Partial Thromboplastin Jose Stat Prothrombin Time INR Stat Troponin & CK Cardiac Panel Stat Discontinued Medications Aspirin (Aspirin 81 Mg Chew Tab) 324 mg PO NOW ONE Stop: 03/04/23 10:00 Last Admin: 03/04/23 10:09 Dose: 324 mg Documented By: AMV Vital Signs Vital signs: Vital Signs - 8 hr 03/04/23 09:55 03/04/23 09:57 03/04/23 09:58 Temperature 97.1 F L Pulse Rate 66 72 Respiratory Rate 18 16 Blood Pressure 178/81 H 189/82 H Pulse Oximetry 99 99 Oxygen Delivery Method Room Air 03/04/23 09:58 03/04/23 10:00 03/04/23 10:00 Temperature Pulse Rate 69 65 Respiratory Rate 14 15 Blood Pressure 178/81 H Pulse Oximetry 100 100 Oxygen Delivery Method 03/04/23 10:15 03/04/23 10:15 03/04/23 10:30 Temperature Pulse Rate 64 Respiratory Rate Blood Pressure 155/69 H 155/78 H Pulse Oximetry 100 Oxygen Delivery Method 03/04/23 10:30 03/04/23 10:45 03/04/23 10:45 Temperature Pulse Rate 63 63 Respiratory Rate 13 14 Blood Pressure 155/75 H Pulse Oximetry 100 100 Oxygen Delivery Method 03/04/23 11:13 03/04/23 11:30 Temperature Pulse Rate 67 56 L Respiratory Rate 11 L Blood Pressure Pulse Oximetry 99 Oxygen Delivery Method Room Air MDM - Arrhythmia/Palpitations <Adwoa Mejía PA-C - Last Filed: 03/04/23 11:54> Differential Diagnosis Differential diagnosis: Likely palpitations, anxiety and other (PACs, PAC couplets) Lab Data Attestation: I reviewed the patient's lab results. 03/04/23 10:00 03/04/23 10:00 Labs: Lab Results 03/04/23 03/04/23 03/04/23 Range/Units 10:00 10:00 10:00 WBC 5.2 (4.5-11.0) X10^3/uL RBC 4.52 (4.5-5.9) X10^6/uL Hgb 14.0 (13.5-17.5) g/dL Hct 40.7 L (41-53) % MCV 90.1 (80-100) fL MCH 31.0 (26-34) PG MCHC 34.4 (30-36) % RDW 13.5 (11.6-14.8) % Plt Count 229 (150-400) X10^3/uL Neut % (Auto) 65.4 (50-75) % Lymph % (Auto) 21.6 L (25-40) % [place] % (Auto) 9.5 (3-14) % Eos % (Auto) 2.6 (2-4) % Baso % (Auto) 0.9 (0-2) % Neut # (Auto) 3400 (9698-2226) /uL Lymph # (Auto) 1100 (2050-3237) /uL [place] # (Auto) 500 (0-900) /uL Eos # (Auto) 100 (0-450) /uL Baso # (Auto) 0 (0-100) /uL PT 11.3 (10.1-12.7) SECONDS INR 1.0 (0.9-1.3) APTT 31 (26-36) SECONDS Sodium 136 L (137-145) mmol/L Potassium 3.8 (3.4-5.1) mmol/L Chloride 103 (98-107) mmol/L Carbon Dioxide 27 (22-32) mmol/L BUN 15 (9-20) mg/dL Creatinine 0.97 (0.66-1.25) mg/dL Estimated GFR > 60 (>60) mL/min BUN/Creatinine Ratio 15.5 (6-22) Glucose 133 H (80-110) mg/dL Calcium 9.2 (8.4-10.2) mg/dL Magnesium 2.1 (1.6-2.3) mg/dL Total Bilirubin 1.5 H (0.2-1.3) mg/dL AST 23 (17-59) IU/L ALT 21 (<50) IU/L Alkaline Phosphatase 78 (38-126) U/L Total Creatine Kinase 59 (55-170) U/L Troponin I < 0.012 (0.01-0.034) ng/mL Total Protein 7.5 (6.3-8.2) g/dL Albumin 4.2 (3.5-5.0) g/dL Globulin 3.3 (1.7-4.1) g/dL Albumin/Globulin Ratio 1.3 (1.0-2.8) Lipase 573 H (23-300) U/L Imaging Data Chest x-ray: My Impression: Agree with Radiology interpretation Radiologist's Impresson: [address] [address] XRay Report Signed Patient: Candido Ramirez MR#: [id number] : 1950 Acct:[id number] Age/Sex: 72 / M Date of Service: 03/04/23 Loc: ED Accession Number: [id number] ?? Procedure: XR chest 1V Ordering Provider: Sahil Lockhart MD PROCEDURE:? XR CHEST 1V ? INDICATIONS:? chest pain ? TECHNIQUE:? One view of the chest was acquired.? ? COMPARISON:? [facility], , CHEST 2 VIEW, 04/18/2011, 12:42. ? FINDINGS:? ? Surgical changes and devices:? None.? ? Lungs and pleura:? Lungs are clear.? No pleural effusions or pneumothorax.? Redemonstration of hyperaeration with flattening of the hemidiaphragms.? ? Mediastinum:? Mediastinal contours appear normal.? Heart size is normal.? ? Bones and chest wall:? No suspicious bony lesions.? Overlying soft tissues appear unremarkable.? ? IMPRESSION:? Stable radiographic evaluation of the chest without acute cardiopulmonary abnormalities or focal airspace disease. ? Redemonstration of findings suggestive of chronic obstructive pulmonary physiology. ? ? Dictated by: Ramone Soto M.D. on 03/04/2023 at 10:20 ? ? Approved by: Ramone Soto M.D. on 03/04/2023 at 10:20?? ECG Data Attestation: I personally reviewed and interpreted this ECG as follows: Interpretation: Sinus rhythm with PACs and PAC couplets heart rate 71, DE interval 138 milliseconds QRS 86 milliseconds QTC 419 milliseconds Treatment and disposition Shared decision making:: Shared decision-making was used in determining this patient's plan of care in the emergency department and plan for outpatient follow-up and cardiology follow-up MDM Narrative Medical decision making narrative: This is a 72-year-old male who presents with concern for palpitations that have been intermittent over the past month or so worse since he got COVID in early February most recently occurring this morning and lasting for over an hour. Upon presentation to the ED patient did have frequent PACs with some PAC couplets noted on his 12 lead EKG, although PACs resolved during the ED stay and he did not have persistence of this on the monitor or persistent symptoms of palpitations. Patient's labs including cardiac labs returned unremarkable with the exception of slightly elevated lipase around 500, patient has no abdominal tenderness, no nausea or vomiting and I am not suspicious that this represents pancreatitis although it is possible could represent an early pancreatitis. Patient's heart score is 4 due to age aqnd hx of HLD. Patient does have a history of GERD and was taking Nexium the last few days for this which has been effective. 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 He has not had any respiratory symptoms, coughing shortness of breath since he recovered from COVID last week. Patient is advised to follow up with his primary care provider regarding seeing Cardiology and having a Zio patch monitor for further evaluation, recommendations and care. He is advised regarding return precautions, follow-up plan discussed, all questions answered. <Sahil Lockhart MD - Last Filed: 03/04/23 12:21> Lab Data Labs: Lab Results 03/04/23 03/04/23 03/04/23 Range/Units 10:00 10:00 10:00 WBC 5.2 (4.5-11.0) X10^3/uL RBC 4.52 (4.5-5.9) X10^6/uL Hgb 14.0 (13.5-17.5) g/dL Hct 40.7 L (41-53) % MCV 90.1 (80-100) fL MCH 31.0 (26-34) PG MCHC 34.4 (30-36) % RDW 13.5 (11.6-14.8) % Plt Count 229 (150-400) X10^3/uL Neut % (Auto) 65.4 (50-75) % Lymph % (Auto) 21.6 L (25-40) % [place] % (Auto) 9.5 (3-14) % Eos % (Auto) 2.6 (2-4) % Baso % (Auto) 0.9 (0-2) % Neut # (Auto) 3400 (8160-5304) /uL Lymph # (Auto) 1100 (3227-5268) /uL [place] # (Auto) 500 (0-900) /uL Eos # (Auto) 100 (0-450) /uL Baso # (Auto) 0 (0-100) /uL PT 11.3 (10.1-12.7) SECONDS INR 1.0 (0.9-1.3) APTT 31 (26-36) SECONDS Sodium 136 L (137-145) mmol/L Potassium 3.8 (3.4-5.1) mmol/L Chloride 103 (98-107) mmol/L Carbon Dioxide 27 (22-32) mmol/L BUN 15 (9-20) mg/dL Creatinine 0.97 (0.66-1.25) mg/dL Estimated GFR > 60 (>60) mL/min BUN/Creatinine Ratio 15.5 (6-22) Glucose 133 H (80-110) mg/dL Calcium 9.2 (8.4-10.2) mg/dL Magnesium 2.1 (1.6-2.3) mg/dL Total Bilirubin 1.5 H (0.2-1.3) mg/dL AST 23 (17-59) IU/L ALT 21 (<50) IU/L Alkaline Phosphatase 78 (38-126) U/L Total Creatine Kinase 59 (55-170) U/L Troponin I < 0.012 (0.01-0.034) ng/mL Total Protein 7.5 (6.3-8.2) g/dL Albumin 4.2 (3.5-5.0) g/dL Globulin 3.3 (1.7-4.1) g/dL Albumin/Globulin Ratio 1.3 (1.0-2.8) Lipase 573 H (23-300) U/L Discharge Plan Departure Patient Disposition: Home Clinical Impression: PAC (premature atrial contraction), Intermittent palpitations Activity Restrictions/Additional Instructions: *You have been diagnosed with [PACs (premature atrial contractions)] *What to do: *Please continue to take your regular medications as directed. [ ] New medication prescriptions sent to your pharmacy: [ ] [ ] New medication written as a paper prescription [X ] No new medications given *Please follow up with your primary care provider in 2-3 days, call for an appointment. Let them know you were seen in the Emergency Department and that we ask that you be seen in follow up. We will electronically transmit a record of today's note if your PCP is in our system. As we discussed typically PACs are benign but if they are causing symptoms for you of palpitations or any chest discomfort and/or happening more frequently than you had them happened in the past it is important to have further evaluation. Typically the recommendation is to have a wearable certified legal investigator for a period of time as we discussed. I also think that you would benefit from seeing cardiology. Your primary care provider can get you set up with monitoring and refer you to cardiology and I encourage you to get into see him as soon as possible. Of course if you are having new or worsening symptoms such as chest pain, shortness of breath, persistent palpitations, dizziness lightheadedness, nausea, vomiting syncope or any other symptoms of concern it is important and very appropriate to get re-evaluated or return to the emergency department if needed. All of your labs today were looking good your lipase was slightly elevated however you have no abdominal tenderness and no nausea or vomiting so I am not too concerned about this today. Your cardiac labs looked good as did your CBC and CMP. Your chest x-ray radiology read was suggestive of possibly a obstructive pulmonary disease process, it is possible that because he recently had COVID there are some changes to your lungs of the radiologist was seeing today and that this could improve over time--or this may represent a chronic process for you. You can also follow-up with your primary care provider regarding this and determine if further evaluation or specialist visit is needed. In the meantime I encourage you to avoid excessive use of stimulants such as caffeine, try to keep your stress levels low and stay well hydrated. *If you do not have a primary care provider please contact the [facility] Resource line at [phone]. They will ask some questions about your medical history and help get you set up with a doctor in the community. *Return to Emergency Department if you should have any new, worsening or concerning symptoms, such as [fever greater than 101 F, shaking chills, worsening pain, persistent vomiting or other bothersome symptoms] Prescriptions: No Action alprazolam 0.25 mg tablet 0.25 mg PO QDAYP PRN (Reason: Anxiety) Qty: 30 0RF tadalafil 5 mg tablet See Rx Instructions .ROUTE .COMPLEX Qty: 90 3RF Dose Instruction: TAKE ONE TABLET BY MOUTH ONE TIME DAILY Rx Instructions: TAKE ONE TABLET BY MOUTH ONE TIME DAILY Referrals: Rogers Salinas MD [Primary Care Provider] - Stand Alone Forms: Patient Portal/API <Sahil Lockhart MD - Last Filed: 03/04/23 12:21> [facility] I was immediately available in the department for consultation. ?This documentation has been reviewed and I agree with assessment and plan. Supervised by Sahil Lockhart MD
== END 2023-03-04 12:06 | disposition home or self-care (01) ==
PROVIDERS: Emergency Medicine; Emergency Provider Student in an Organized Health Care Education/Training Program; PCP Family Medicine
DX: I49.1 Atrial premature depolarization (principal); R00.2 Palpitations; R07.9 Chest pain, unspecified
CPT/HCPCS: 36415; 71045; 80053; 82550; 83690; 83735; 84484; 85025; 85610; 85730; 93005; 93010; 99284

== ENCOUNTER 2023-06-03 06:38 | Day surgery (SDC) | payer MEDICARE, SELFPAY ==
[2023-06-03 07:07] VITALS: BMI 19.3
[2023-06-03 07:15] VITALS: BP 181/96; PULSE 94; RESP 18; TEMP 36.9; O2SAT 100
[2023-06-03] MEDS: LACTATED RINGERS 1,000 ML 42 ML IV (07:26)
--- NOTE | 2023-06-03 07:46 | P.HP_ITS ---
History of Present Illness History of Present Illness Date Patient Seen: 06/03/23 Time Patient Seen: 07:46 [place] [facility] [place]ative: 72-year-old man with a personal history of colonic polyps here for screening colonoscopy. Last colonoscopy 5 years ago. No abdominal concerns including unintentional weight loss blood per rectum. No family history of intestinal malignancy. [facility] Medical History Acute sore throat Anxiety Benign prostatic hyperplasia Chicken pox (~1954) Diverticulosis Dizzy spells Enlarged prostate Heart murmur History of urinary retention Inguinal hernia Irregular heartbeat Left shoulder strain Measles (~1956) Mumps (~1957) Osteopenia Retinal and vitreous disorder Rib pain on left side Right foot pain Right inguinal hernia Tinnitus (~1994) Surgical History Anesthesia History of cataract removal with insertion of prosthetic lens (~2011) History of colonoscopy History of orchiectomy, unilateral Undescended testicle (~1997) Family History Father Heart disease Mother No problems noted. Sister No problems noted. Sister No problems noted. Social History marital status: household members: spouse Smoking Status: Never smoker alcohol intake: current substance use type: does not use Meds Home Medications and Allergies Home Medications Medication Instructions Recorded Confirmed Type tadalafil 5 mg tablet See Rx Instructions .Route 01/17/23 06/03/23 Rx .COMPLEX #90 tabs alprazolam 0.25 mg tablet 0.25 mg PO QDAYP PRN Anxiety #30 03/27/23 06/03/23 Rx tabs zolpidem 5 mg tablet 5 mg PO ONCE PM PRN insomnia 06/03/23 06/03/23 History Allergies Allergy/AdvReac Type Severity Reaction Status Date / Time fluorouracil [From Efudex] AdvReac Unknown Dizziness Verified 06/03/23 07:05 Exam Vital Signs (past 8 hours): - 06/03/23 07:15 Temperature 98.4 F Pulse Rate 94 H Respiratory Rate 18 Blood Pressure 181/96 H Pulse Oximetry 100 Oxygen Delivery Method Room Air Oxygen Delivery Method Room Air Narrative Exam Narrative: General adult man alert oriented no acute distress Chest nonlabored respiration Extremities warm well perfused Assessment & Plan Assessment & Plan narrative: The patient requires colorectal screening and colonoscopy is recommended. Technical details were discussed. Risks, benefits, alternatives explained. Risks including but not limited to myocardial infarction, aspiration, bleeding, pain, missed lesion, incomplete examination, need for further radiographic studies, colonic perforation, and need for major abdominal surgery were discussed. All questions were answered to their satisfaction, and they are in agreement with this plan.
--- NOTE | 2023-06-03 07:47 | P.OP.COLON_ITS ---
Operative Date/Time/Diagnoses Date of procedure: 06/03/23 Time of procedure: 07:47 Pre-op diagnosis: Personal history of colonic polyps Procedure & Clinicians Study performed: Colonoscopy Same procedure as scheduled: Yes Indications: Colorectal screening Personal history of colonic polyps Surgeon: Erik Brown Procedure Notes Procedure in detail: The history and physical was performed/updated and the patient is ASA class is 2. The procedure was discussed in detail with the patient. Potential risks complications including infection, bleeding, missed diagnosis, perforation, need for surgery, and were explained. Their questions were answered and informed consent was obtained. Patient was brought to the procedure room and placed standard monitoring equipment. The patient's vital signs were monitored continuously throughout the entire procedure. Prior to starting time-out was performed. The patient was placed in the left lateral recumbent position. Procedural sedation was administered by anesthesia. Examination began with a thorough inspection of the perianal area there was no evidence of fissures, fistulae, external hemorrhoids or cutaneous malignancy. The colonoscopy scope was then placed into the anal canal and was advanced to the cecum, which was identified by the ileocecal valve, the appendiceal orifice and the confluence of the taenia. The scope was then slowly withdrawn examining colon thoroughly in all directions, irrigating it of any residual stool. The scope was retroflexed within the rectum The patient tolerated the procedure well. They will be discharged once criteria are met. The prep was of good/excellent quality. The withdrawl time was 7 minutes. FINDINGS * No masses or polyps * Moderate diverticulosis of sigmoid colon Specimen(s): none sent Impression: Normal colonoscopy Post-procedure Plan for aftercare: No need for further colonoscopy unless symptomatic Disposition: same day surgery
[2023-06-03 08:02] VITALS: BP 115/52; PULSE 72; RESP 14; TEMP 36.7; O2SAT 97
[2023-06-03 08:06] VITALS: BP 119/72; PULSE 73; RESP 14; O2SAT 99
[2023-06-03 08:11] VITALS: BP 122/72; PULSE 66; RESP 12; O2SAT 99
[2023-06-03 08:17] VITALS: BP 144/72; PULSE 58; RESP 16; TEMP 37; O2SAT 100
== END 2023-06-03 08:29 | disposition home or self-care (01) ==
PROVIDERS: PCP Family Medicine; Referring Provider Surgery; Visit Provider Surgery
PROC: 0DJD8ZZ Inspection of Lower Intestinal Tract, Via Natural or Artificial Opening Endoscopic (ICD-10-PCS; CPT 45378; principal; 2023-06-03 07:45)
DX: Z12.11 Encounter for screening for malignant neoplasm of colon (principal); Z86.010 Personal history of colon polyps; K57.30 Diverticulosis of large intestine without perforation or abscess without bleeding
CPT/HCPCS: G0105; J2704

== ENCOUNTER 2024-02-22 20:26 | Emergency (ER) | payer MEDICARE, SELFPAY ==
[2024-02-22 20:28] VITALS: BP 176/79; PULSE 62; RESP 16; TEMP 36.8; O2SAT 100; BMI 20.4
--- NOTE | 2024-02-22 20:50 | DI.CT.S_ITS ---
PROCEDURE: CT HEAD/BRAIN WO CON INDICATIONS: R leg weakness TECHNIQUE: Noncontrast 4.5 mm thick angled axial sections acquired from the foramen magnum to the vertex, with coronal and sagittal reformats. For radiation dose reduction, the following was used: automated exposure control, adjustment of mA and/or kV according to patient size. COMPARISON: None. FINDINGS: Image quality: Diagnostic. CSF spaces: Basal cisterns are patent. No extra-axial fluid collections. The ventricles are symmetric in size and shape. Brain: No intracranial bleeds or masses. There is cerebral volume loss for age, with resultant ventricular and sulcal prominence. There are periventricular and deep white matter chronic small vessel ischemic changes. There is intracranial internal carotid artery atherosclerosis. Skull and face: Calvarium and visualized facial bones appear intact, without suspicious lesions. Sinuses: Visualized sinuses and mastoids are clear. IMPRESSION: 1. CT head without acute intracranial abnormalities or acute calvarial fractures. 2. Age-related senescent changes and sequela of chronic small vessel ischemic disease. Dictated by: Ramone Soto M.D. on 02/22/2024 at 21:31 Approved by: Ramone Soto M.D. on 02/22/2024 at 21:33
--- NOTE | 2024-02-22 20:50 | DI.CT.S_ITS ---
PROCEDURE: CT LUMBAR SPINE WO CON INDICATIONS: R leg weakness TECHNIQUE: Noncontrast 3 mm thick sections acquired from the T12 level to the sacrum. Sagittal and coronal reformats were constructed. For radiation dose reduction, the following was used: automated exposure control. COMPARISON: None. FINDINGS: Image quality: Diagnostic. Bones: There is normal bony alignment. No acute vertebral body compression fractures. No suspicious lytic or blastic bony lesions. No pars defects. T12-L1: No significant neuroforaminal or spinal canal stenosis. L1-L2: No significant neuroforaminal or spinal canal stenosis. L2-L3: No significant neuroforaminal or spinal canal stenosis. L3-L4: Symmetric disc bulge. Degenerative endplate changes. Minimal bilateral facet arthropathy. Mild-moderate bilateral neuroforaminal stenosis. No significant spinal canal stenosis. L4-L5: Mild bilateral facet arthropathy. Symmetric disc bulge. Mild spinal canal stenosis. Mild-moderate bilateral neuroforaminal stenosis. L5-S1: Minimal bilateral facet arthropathy. Symmetric disc bulge. No significant spinal canal stenosis or neuroforaminal stenosis. Soft tissues: No retroperitoneal masses or hematomas. Visualized aorta is normal in caliber. IMPRESSION: Lumbar spine without acute osseous abnormalities. No acute compression fractures. Multilevel, multifactorial lumbar spondylosis as described above. Findings are most severe at L4-5. Dictated by: Ramone Soto M.D. on 02/22/2024 at 21:33 Approved by: Ramone Soto M.D. on 02/22/2024 at 21:37
--- NOTE | 2024-02-22 21:00 | PC.NURSE ---
pt states he was sitting in the chair when his right leg started feeling not right pt states it jerked and has just felt like it wasn't working right, sensation the same in both legs, strength equal and strong in both legs pt denies any other s/s or problems
[2024-02-22 21:04] LABS: Add Manual Diff / Slide Review NO; Basophils Absolute Auto 100 /uL (0-100); Basophils Percent Auto 0.9 % (0-2); Eosinophils Absolute Auto 200 /uL (0-450); Hematocrit 42.2 % (41-53); Hemoglobin 14.3 g/dL (13.5-17.5); Lymphocytes Absolute Auto 1800 /uL (1100-4500); Lymphocytes Percent Auto 24.9 % (25-40); Mean Corpuscular HGB Conc 33.8 % (30-36); Mean Corpuscular Hemoglobin 30.8 PG (26-34); Mean Corpuscular Volume 91.1 fL (80-100); Monocytes Absolute Auto 700 /uL (0-900); Monocytes Percent Auto 9.2 % (3-14); Neutrophils Absolute Auto 4600 /uL (1500-7000); Platelet Count 261 X10^3/uL (150-400); Red Blood Cell Count 4.63 X10^6/uL (4.5-5.9); Red Cell Distribution Width 13.3 % (11.6-14.8); White Blood Cell Count 7.3 X10^3/uL (4.5-11.0)
[2024-02-22 21:12] LABS: Prothrombin Time 11.1 SECONDS (9.4-12.5)
[2024-02-22 21:14] LABS: PTT Partial Thromboplastin Tim 36 SECONDS (25.1-36.5)
[2024-02-22 21:15] LABS: Alanine Aminotransferase 30 IU/L (<50); Albumin 4.3 g/dL (3.5-5.0); Albumin Globulin Ratio 1.3 (1.0-2.8); Alkaline Phosphatase 79 U/L (38-126); Aspartate Aminotransferase 29 IU/L (17-59); BUN Creatinine Ratio 19.5 (6-22); Bilirubin Total 1.6 mg/dL (0.2-1.3); Blood Urea Nitrogen 22 mg/dL (9-20); Calcium 9.4 mg/dL (8.4-10.2); Carbon Dioxide 24 mmol/L (22-32); Chloride 106 mmol/L (98-107); Creatine Kinase 70 U/L (55-170); Estimated Glomerular Filt Rate > 60 mL/min (>60); Globulin 3.3 g/dL (1.7-4.1); Glucose 101 mg/dL (80-110); HEMOLYSIS < 15 (0-50); Lipase 127 U/L (23-300); Magnesium 2.2 mg/dL (1.6-2.3); Potassium 3.8 mmol/L (3.4-5.1); Sodium 137 mmol/L (137-145); Total Protein 7.6 g/dL (6.3-8.2)
[2024-02-22 21:26] LABS: NT-proBNP (BNP-Adult 18+) 30 pg/mL (<450); Troponin I < 0.012 ng/mL (0.01-0.034)
[2024-02-22 22:39] VITALS: O2SAT 100
[2024-02-22 22:40] VITALS: BP 172/79; PULSE 66; O2SAT 99
[2024-02-22 23:00] VITALS: BP 159/71; PULSE 59; O2SAT 99
[2024-02-22 23:30] VITALS: BP 171/79; PULSE 67; O2SAT 98
--- NOTE | 2024-02-22 23:35 | PC.NURSE ---
pt states he is feeling better and wanting to leave, Dr Montana informed and states he will see the pt next
--- NOTE | 2024-02-22 23:40 | ED_ITS ---
HPI - Extremity Problem General Chief complaint: Extremity Problem,Nontraumatic Stated complaint: rt leg spasm/weakness Time Seen by Provider: 02/22/24 23:09 History of Present Illness HPI Narrative: 73-year-old male with history of left sciatica, not usually right-sided and symptoms, had eaten dinner and then was sitting at a chair on his computer, when he subsequently was walking around and felt some weakness to his right leg, somewhat slight difficulty in walking, felt like it might be asleep from position, no tingling or numbness. Symptoms seemed to be improving after being up and about and not sitting in his chair. He is right-handed, wears as well as in his jeans/pants back pocket, usually on the right side. No injury or trauma. No incontinence symptoms. No history of prior strokes. No history of back problems, back pain, back surgeries. Related Data Previous Rx's Medication Instructions Recorded alprazolam 0.25 mg tablet 0.25 mg PO QDAYP PRN Anxiety #30 11/05/23 tabs zolpidem 5 mg tablet 5 mg PO ONCE PM PRN jet lag #7 tabs 11/05/23 tadalafil 5 mg tablet See Rx Instructions .Route 01/27/24 .COMPLEX #90 tabs Allergies Allergy/AdvReac Type Severity Reaction Status Date / Time fluorouracil [From Efudex] AdvReac Unknown Dizziness Verified 12/08/23 10:36 Review of Systems Review of Systems Narrative: per HPI Patient History Medical History Acute sore throat Anxiety Benign prostatic hyperplasia Chicken pox (~1954) Diverticulosis Dizzy spells Enlarged prostate Heart murmur History of urinary retention Inguinal hernia Irregular heartbeat Left shoulder strain Measles (~1956) Mumps (~1957) Osteopenia Retinal and vitreous disorder Rib pain on left side Right foot pain Right inguinal hernia Tinnitus (~1994) Surgical History Anesthesia History of cataract removal with insertion of prosthetic lens (~2011) History of colonoscopy History of orchiectomy, unilateral Undescended testicle (~1997) Family History Father Heart disease Mother No problems noted. Sister No problems noted. Sister No problems noted. Social History marital status: household members: spouse Smoking Status: Never smoker alcohol intake: current substance use type: does not use Smoking Status: Never smoker alcohol intake frequency: holidays/special occasions only Substance Use Type: marijuana Exam Narrative Exam Narrative: GENERAL: Well-developed patient, in mild distress. HEAD: Atraumatic. Normocephalic. EYES: Pupils equal round and reactive. Extraocular motions intact. No scleral icterus. No injection or drainage. ENT: Nose without bleeding, purulent drainage. Throat without erythema, tonsillar hypertrophy or exudate. Airway patent. NECK: Trachea midline. Non tender CARDIOVASCULAR: Regular rate and rhythm without murmurs, gallops, or rubs. RESPIRATORY: Clear to auscultation. Breath sounds equal bilaterally. No wheezes, rales, or rhonchi. GASTROINTESTINAL: Abdomen soft, non-tender, nondistended. EXTREMITIES: No edema or joint tenderness. BACK: Nontender without deformity or crepitance. No flank tenderness. NEURO: AOx3. Nonfocal neuro exam. Straight leg raise right and left brisk 60? without symptoms. Motor 5/5 upper extremities and lower extremities. Cranial nerves exam unremarkable. [id number]-[id number] testing normal. Sensation intact to light touch face upper extremities lower extremities. SKIN: No rash or erythema of visible areas Initial Vital Signs Initial Vital Signs: Vital Signs Temperature 98.2 F 02/22/24 20:28 Pulse Rate 62 02/22/24 20:28 Respiratory Rate 16 02/22/24 20:28 Blood Pressure 176/79 H 02/22/24 20:28 Pulse Oximetry 100 02/22/24 20:28 Oxygen Delivery Method Room Air 02/22/24 20:28 Course Orders Ordered: ED Orders 02/22/24 20:50 CT head/brain wo con Stat CT lumbar spine wo con Stat 02/22/24 20:53 Complete Blood Count AUTO DIFF Stat Comprehensive Metabolic Panel Stat Lipase Stat Magnesium Stat NT-proBNP (BNP-Adult 18+) Stat PTT Partial Thromboplastin Jose Stat Prothrombin Time INR Stat Troponin & CK Cardiac Panel Stat Vital Signs Vital signs: Vital Signs - 8 hr 02/22/24 20:28 02/22/24 22:39 02/22/24 22:40 Temperature 98.2 F Pulse Rate 62 66 Respiratory Rate 16 Blood Pressure 176/79 H Pulse Oximetry 100 100 99 Oxygen Delivery Method Room Air 02/22/24 22:40 02/22/24 23:00 02/22/24 23:00 Temperature Pulse Rate 59 L Respiratory Rate Blood Pressure 172/79 H 159/71 H Pulse Oximetry 99 Oxygen Delivery Method Room Air 02/22/24 23:30 02/22/24 23:30 02/23/24 00:00 Temperature Pulse Rate 67 59 L Respiratory Rate Blood Pressure 171/79 H Pulse Oximetry 98 99 Oxygen Delivery Method 02/23/24 00:00 02/23/24 00:33 Temperature 97.5 F L Pulse Rate 78 Respiratory Rate 16 16 Blood Pressure 153/71 H 135/78 Pulse Oximetry 98 Oxygen Delivery Method Room Air MDM - Extremity (Nontraumatic) Lab Data 02/22/24 20:53 02/22/24 20:53 Labs: Lab Results 02/22/24 Range/Units 20:53 WBC 7.3 (4.5-11.0) X10^3/uL RBC 4.63 (4.5-5.9) X10^6/uL Hgb 14.3 (13.5-17.5) g/dL Hct 42.2 (41-53) % MCV 91.1 (80-100) fL MCH 30.8 (26-34) PG MCHC 33.8 (30-36) % RDW 13.3 (11.6-14.8) % Plt Count 261 (150-400) X10^3/uL Neut % (Auto) 62.0 (50-75) % Lymph % (Auto) 24.9 L (25-40) % [place] % (Auto) 9.2 (3-14) % Eos % (Auto) 3.0 (2-4) % Baso % (Auto) 0.9 (0-2) % Neut # (Auto) 4600 (1261-4992) /uL Lymph # (Auto) 1800 (8533-1032) /uL [place] # (Auto) 700 (0-900) /uL Eos # (Auto) 200 (0-450) /uL Baso # (Auto) 100 (0-100) /uL PT 11.1 (9.4-12.5) SECONDS INR 1.0 (0.9-1.3) APTT 36 (25.1-36.5) SECONDS Sodium 137 (137-145) mmol/L Potassium 3.8 (3.4-5.1) mmol/L Chloride 106 (98-107) mmol/L Carbon Dioxide 24 (22-32) mmol/L BUN 22 H (9-20) mg/dL Creatinine 1.13 (0.66-1.25) mg/dL Estimated GFR > 60 (>60) mL/min BUN/Creatinine Ratio 19.5 (6-22) Glucose 101 (80-110) mg/dL Calcium 9.4 (8.4-10.2) mg/dL Magnesium 2.2 (1.6-2.3) mg/dL Total Bilirubin 1.6 H (0.2-1.3) mg/dL AST 29 (17-59) IU/L ALT 30 (<50) IU/L Alkaline Phosphatase 79 (38-126) U/L Total Creatine Kinase 70 (55-170) U/L Troponin I < 0.012 (0.01-0.034) ng/mL NT-Pro-B Natriuret Pep 30 (<450) pg/mL Total Protein 7.6 (6.3-8.2) g/dL Albumin 4.3 (3.5-5.0) g/dL Globulin 3.3 (1.7-4.1) g/dL Albumin/Globulin Ratio 1.3 (1.0-2.8) Lipase 127 (23-300) U/L Imaging Data CT scan - head: Radiologist's Impression: [address] [address] [address] Scan Report Signed Patient: Candido Ramirez MR#: [id number] : 1950 Acct:[id number] Age/Sex: 73 / M Date of Service: 02/22/24 Loc: ED Accession Number: [id number] Procedure: CT head/brain wo con Ordering Provider: Fawad Montana MD PROCEDURE: CT HEAD/BRAIN WO CON INDICATIONS: R leg weakness TECHNIQUE: Noncontrast 4.5 mm thick angled axial sections acquired from the foramen magnum to the vertex, with coronal and sagittal reformats. For radiation dose reduction, the following was used: automated exposure control, adjustment of mA and/or kV according to patient size. COMPARISON: None. FINDINGS: Image quality: Diagnostic. CSF spaces: Basal cisterns are patent. No extra-axial fluid collections. The ventricles are symmetric in size and shape. Brain: No intracranial bleeds or masses. There is cerebral volume loss for age, with resultant ventricular and sulcal prominence. There are periventricular and deep white matter chronic small vessel ischemic changes. There is intracranial internal carotid artery atherosclerosis. Skull and face: Calvarium and visualized facial bones appear intact, without suspicious lesions. Sinuses: Visualized sinuses and mastoids are clear. IMPRESSION: 1. CT head without acute intracranial abnormalities or acute calvarial fractures. 2. Age-related senescent changes and sequela of chronic small vessel ischemic disease. Dictated by: Ramone Soto M.D. on 02/22/2024 at 21:31 Approved by: Ramone Soto M.D. on 02/22/2024 at 21:33 CT Lumbar Spine: Radiologist's Impression: [place] [address] CT Scan Report Signed Patient: Candido Ramirez MR#: [id number] : 1950 Acct:[id number] Age/Sex: 73 / M Date of Service: 02/22/24 Loc: ED Accession Number: [id number] Procedure: CT lumbar spine wo con Ordering Provider: Fawad Montana MD PROCEDURE: CT LUMBAR SPINE WO CON INDICATIONS: R leg weakness TECHNIQUE: Noncontrast 3 mm thick sections acquired from the T12 level to the sacrum. Sagittal and coronal reformats were constructed. For radiation dose reduction, the following was used: automated exposure control. COMPARISON: None. FINDINGS: Image quality: Diagnostic. Bones: There is normal bony alignment. No acute vertebral body compression fractures. No suspicious lytic or blastic bony lesions. No pars defects. T12-L1: No significant neuroforaminal or spinal canal stenosis. L1-L2: No significant neuroforaminal or spinal canal stenosis. L2-L3: No significant neuroforaminal or spinal canal stenosis. L3-L4: Symmetric disc bulge. Degenerative endplate changes. Minimal bilateral facet arthropathy. Mild-moderate bilateral neuroforaminal stenosis. No significant spinal canal stenosis. L4-L5: Mild bilateral facet arthropathy. Symmetric disc bulge. Mild spinal canal stenosis. Mild-moderate bilateral neuroforaminal stenosis. L5-S1: Minimal bilateral facet arthropathy. Symmetric disc bulge. No significant spinal canal stenosis or neuroforaminal stenosis. Soft tissues: No retroperitoneal masses or hematomas. Visualized aorta is normal in caliber. IMPRESSION: Lumbar spine without acute osseous abnormalities. No acute compression fractures. Multilevel, multifactorial lumbar spondylosis as described above. Findings are most severe at L4-5. Dictated by: Ramone Soto M.D. on 02/22/2024 at 21:33 Approved by: Ramone Soto M.D. on 02/22/2024 at 21:37 MDM Narrative Medical decision making narrative: 73-year-old male with right-sided leg weakness after sitting after dinner on his computer, improved symptoms after walking around, no tingling or numbness. DDx consider position related neuropathy, compression of right-sided while it onto his right sciatic groove while sitting, consider lumbar radiculopathy, consider stroke, other. CT head noncontrast study, CT lumbar spine noncontrast study, as well as EKG and labs were sent from triage. His symptoms seemed to be further improved then resolved while in the waiting room. CT head no acute changes, see radiology report. CT lumbar spine, multilevel degenerative arthritic changes, see radiology report. Symptoms improved. He feels better and wants to go home, home with . We did discuss further workup that could be additionally performed if there is concern for stroke, which could include CT angiogram of the head and neck vessels, MRI of the brain, echocardiogram. He prefers not to have any further testing at this time. He was advised to consider keeping his wallet in the front side of his pants, if this was a direct pressure phenomenon onto his right sciatic groove. Further workup as needed as outpatient for now. Encouraged to follow up with his regular doctor early this next week. Return precautions discussed. Home per patient request with family. Discharge Plan Departure Patient Disposition: Home Clinical Impression: Transient weakness of right lower extremity Activity Restrictions/Additional Instructions: Right leg weakness after sitting while using computer, some sensation of right leg weakness, as if it had fallen asleep from sitting position. No history of prior stroke. No history of prior spinal surgery problems. CT head noncontrast study showed no acute changes per radiologist's report. CT lumbar spine showed multilevel degenerative arthritic changes, as per radiologist's report. Your symptoms resolved in the emergency department. You had excellent motor function, good straight leg lifting. Consider local compression of sciatic nerve on the right side due to sitting position, perhaps exacerbated from right- sided wallet positioned in posterior pockets of pants. Consider also stroke symptoms, or lumbar radiculopathy problem. Regarding the stroke workup, further testing could be performed such as CT angiogram studies of the head in the neck vessels, MRI of the brain, cardiac echo of the heart. You were informed of these studies, declined any further workup for now, felt better, wanted to go home. Home with family. Further workup as needed as an outpatient for now. Encouraged to discuss symptoms further with your regular doctor early this week, to coordinate further testing if needed as an outpatient. Consider use of daily aspirin. Return to this/nearest emergency department for any change worsening symptoms or any concerns prior Prescriptions: No Action alprazolam 0.25 mg tablet 0.25 mg PO QDAYP PRN (Reason: Anxiety) Qty: 30 0RF Rx Instructions: Take one tablet once daily NEEDED for anxiety zolpidem 5 mg tablet 5 mg PO ONCE PM PRN (Reason: jet lag) Qty: 7 0RF tadalafil 5 mg tablet See Rx Instructions .ROUTE .COMPLEX Qty: 90 3RF Dose Instruction: TAKE ONE TABLET BY MOUTH ONE TIME DAILY Rx Instructions: TAKE ONE TABLET BY MOUTH ONE TIME DAILY Referrals: Rogers Salinas MD [Primary Care Provider] - Stand Alone Forms: Patient Portal/API
[2024-02-23] VITALS: BP 153/71; PULSE 59; RESP 16; O2SAT 99
[2024-02-23 00:33] VITALS: BP 135/78; PULSE 78; RESP 16; TEMP 36.4; O2SAT 98
== END 2024-02-23 00:35 | disposition home or self-care (01) ==
PROVIDERS: Emergency Provider Emergency Medicine; PCP Family Medicine
DX: R53.1 Weakness (principal)
CPT/HCPCS: 36415; 70450; 72131; 80053; 82550; 83690; 83735; 83880; 84484; 85025; 85610; 85730; 99283; 99284

== ENCOUNTER → 2024-05-13 08:06 | Outpatient (CLI) | payer MEDICARE, SELFPAY ==
[2024-05-13 08:55] LABS: Cholesterol 210 mg/dL (140-199); HDL Cholesterol 81 mg/dL (40-60); LDL Cholesterol Calculated 116 mg/dL (<100); Triglycerides 64 mg/dL (35-150)
[2024-05-13 09:24] LABS: Prostate Specific Antigen Scrn 1.25 ng/mL (0.1-4.0)
== END ==
PROVIDERS: PCP Family Medicine; Referring Provider Family Medicine; Visit Provider Family Medicine
DX: E78.2 Mixed hyperlipidemia (principal); Z12.5 Encounter for screening for malignant neoplasm of prostate; N40.1 Benign prostatic hyperplasia with lower urinary tract symptoms; R35.1 Nocturia; Z79.899 Other long term (current) drug therapy
CPT/HCPCS: 36415; 80061; G0103

== ENCOUNTER 2024-06-21 07:49 | Observation (INO) | payer MEDICARE, SELFPAY ==
[2024-06-16 08:51] VITALS: BMI 20.4
[2024-06-21] VITALS (13 sets, daily range): BP systolic 126–168; BP diastolic 66–90; PULSE 12–100; RESP 10–20; TEMP 36.2–37.2; O2SAT 98–100; BMI 19.8
--- NOTE | 2024-06-21 | PATH_ITS ---
[facility] Accession Number: [id number] No. of containers..01 Tissue . 01 Material submitted: . prostate - PROSTATE CHIPS . 01 Diagnosis: Prostate tissue (chips), transurethral resection of the prostate (TURP): Benign prostatic tissue with glandular and stromal hyperplasia. Negative for malignancy. TXN 06/24/2024 0927 Local . 01 Electronically signed: . Toño Landaverde MD, Pathologist NPI- [id number] . 01 Gross description: . Received in formalin with two patient identifiers and prostate chips, are multiple caldera soft tissue fragments admixed with hemorrhagic material weighing 2 grams and aggregating to 3.5 x 3.5 x 0.8 cm. The specimen is submitted entirely in A1-A2. ([id number]) /MRV 06/23/20241827 Local . 01 Pathologist provided ICD-10: N40.1 . 01 CPT . 575993 Specimen Comment: A courtesy copy of this report has been sent to [facility] Pathology Performed at: [address] [address], [place], [place] [id number] MD Chino Barney MD Phone: [phone]
--- NOTE | 2024-06-21 10:01 | PM.PREOP ---
Pre-operative Note COVID-19 COVID-19 status: Not tested Interval Note History & Physical reviewed/Exam performed by Physician: Yes Changes to H&P: No
[2024-06-21] MEDS: CEFAZOLIN 2 GM/100 ML PREMIX 100 ML IV (10:15)
--- NOTE | 2024-06-21 10:31 | SUR.OPER ---
Lithotomy on padded OR bed, head on pillow, arms secured on padded arm boards at <90 degrees abduction. Legs secured in padded yellow fins stirrups.
--- NOTE | 2024-06-21 11:18 | PM.OP.1 ---
Procedure & Clinicians Procedure: Cystoscopy Aquablation Same procedure as scheduled: Yes Indications: 73 y/o M w/ symptoms consistent w/ BPH and LUTS that are not well managed with Tadalafil 5mg daily. Discussed treatment options to include observation vs a trial of alpha blockers. Discussed mechanism of action and expected side effects to include orthostatic hypotension, nasal congestion and retrograde ejaculation. Of note, he has tried Tamsulosin several times in the past, does not feel that it was helpful and experienced side effects. Also discussed the possible addition of Finasteride 5mg daily (discussed possible side effects to include decreased libido, worsening erectile dysfunction, loss of ejaculate volume as well as painful breast development or nipple tenderness). Discussed that his cystoscopy and TRUS prostate were notable for coaptating lateral prostatic lobes with a small intravesical median lobe and a TRUS volume of 35 cc. Surgeon: José Miranda Click Yes if Unassisted: Yes Anesthesia Type: General Operative Notes Findings: Coaptating lateral prostatic lobes, small intravesical median lobe Closure Type: not applicable Specimen(s): other (prostate chips) Applied: catheter Estimated Blood Loss (mL): 10 Blood products transfused: none Procedure in detail: After informed consent was obtained, the patient was identified brought to the operating room where he was placed in his supine position on the table.? Once there anesthesia was induced and maintained.? Ensuring an adequate level of anesthesia the patient was transitioned to the lithotomy position where after time-out he was prepped.? After prepping, ensuring an adequate level of anesthesia, administration IV antibiotics and time-out 60 cc of ultrasound gel was instilled within the rectum and the ultrasound probe which had been attached to the TRUS stepper which was attached to the TRUS stepper articulating arm which was secured to the bed was advanced into the rectum under direct vision via the ultrasound.? The ultrasound probe was then aligned and confirmation made that the prostate was centered and aligned in both the sagittal and transverse views.? The bladder neck, verumontanum, central and transitional zones were identified.? With the ultrasound in place and adjusted the patient was then draped in a sterile fashion. With the patient draped the 24 [place] aqua beam handpiece was then inserted through the urethra and advanced into the bladder.? Cystoscopy was then performed and no concerning bladder mass or lesions were noted.? Bilateral ureteral orifices were noted to be orthotopic in nature.? As the cystoscope was advanced the level of the sphincter, verumontanum, bladder neck were all identified via ultrasound and under direct vision.? The aqua beam hand place was then secured to the handpiece articulating arm which had been secured to the bed.? The Aquablation handpiece and TRUS probe were confirmed to be parallel and colinear.? Confirmation was then made that the aqua beam handpiece and nozzle was centered and anterior to the bladder neck. ?The cystoscope was then retracted under direct vision in the sphincter and verumontanum were identified.? The tip of the cystoscope was then placed proximal to the external sphincter.? Compression was applied with the TRUS probe to the prostate.? The alignment of the TRUS probe and aqua beam handpiece was once again confirmed.? Horizontal alignment of the handpiece water jet was then performed.? With these adjustments made, the treatment zones were then planned using real-time ultrasound.? In the largest transverse view of the prostate the depth and radial angles were determined and set again in the transverse view of the prostate.? In the longitudinal and sagittal view the Aquablation nozzle was identified and its position registered with the software and robot.? The treatment contours were then determined and adjusted to reflect the intended margins of resection.? Following our plan confirmation, the Aquablation resection treatment was started.? A 2nd pass was then completed in similar fashion after the 1st pass had been completed.? At this point, the Aqua hand piece was removed from the urethra. The 26Fr resectoscope was then inserted into the urethra and cystoscopy was repeated.? The [employer] plumber was utilized to evacuate the blood clots from the bladder.? The bladder neck was then resected using the bipolar Gyrus loop.? Bilateral ureteral orifices were again identified and noted to be intact at case end.? Hemostasis was obtained and noted to be excellent at case end.? The resectoscope was then removed and a 24Fr Kyle 3-way hematuria catheter was inserted through the urethra and into the bladder.? 40cc of sterile water was utilized for balloon insufflation.? Efflux was noted to be clear at case end.? Anesthesia was reversed, he was extubated in the OR and transferred to the PACU in stable condition for recovery. Complications: none Post-operative Condition: stable Disposition: PACU Plan for aftercare: Will run continuous bladder irrigation in the PACU for a few hours and determine if he will be admitted overnight for continued CBI vs discharged home with his catheter in place.
[2024-06-21] MEDS: OXYCODONE IR 5 MG TABLET PO (11:50)
[2024-06-21] MEDS: ACETAMINOPHEN 325 MG TABLET 1000 MG PO (12:33)
[2024-06-21] MEDS: ACETAMINOPHEN 325 MG TABLET 650 MG PO ×2 (17:40→22:16)
[2024-06-21] MEDS: ALPRAZolam 0.25 MG TABLET PO (22:16)
[2024-06-22] VITALS: BP 127/81; PULSE 60; RESP 12; TEMP 36.7; O2SAT 96
[2024-06-22] MEDS: ACETAMINOPHEN 325 MG TABLET 650 MG PO ×2 (03:54→10:20)
[2024-06-22 04:00] VITALS: BP 134/77; PULSE 57; RESP 16; TEMP 36.8; O2SAT 97
--- NOTE | 2024-06-22 06:43 | PC.NURSE ---
NOC: Pt tolerated CBI well, pain well controlled with APAP (see MAR). Titrated rate to Grade 1 (clear), occasionally Grade 2 ([place]). Clamped CBI tubing @ 0630 and disconnected from pt per MD order. Some sanguinous drainage noted at urinary meatus, pt states some irritation d/t Ornelas tube but tolerable and improving with APAP. Pt resting comfortably, Ornelas patent and draining. Care continues.
[2024-06-22 08:54] VITALS: BP 155/84; PULSE 62; RESP 17; TEMP 36.6; O2SAT 100
--- NOTE | 2024-06-22 09:24 | PM.PN.1 ---
Subjective Subjective Date Patient Seen: 06/22/24 Time Patient Seen: 08:00 Interval history: 73 y/o M w/ BPH and bothersome LUTS who strongly desired surgical management via an Aquablation procedure.? He is now POD 1 and tolerated the aforementioned procedure without any complications and had an uneventful night in the hospital.? He was tolerating a regular diet without nausea or vomiting and his pain remained well controlled.? His CBI was discontinued this AM and he was able to ambulate 3-4 laps in the hallways without issues.? He is eager to have his catheter removed. Exam Vital Signs (past 8 hours): - 06/22/24 04:00 06/22/24 08:54 Temperature 98.3 F 97.8 F Pulse Rate 57 L 62 Respiratory Rate 16 17 Blood Pressure 134/77 155/84 H Pulse Oximetry 97 100 Oxygen Flow Rate 0 0 Oxygen Delivery Method Room Air Oxygen Flow Rate 0 Narrative Exam Narrative: GEN:? Alert and oriented X3.? No acute distress.? Well-nourished. EYES:? PERRLA, EOMI. HENT:? Moist mucus membranes, no scleral icterus, normal neck ROM. RESP:? Unlabored breathing, equal rise and fall of chest bilaterally, no cyanosis appreciated. CV:? No peripheral edema, unremarkable heart rate. ABD:? Soft, non-tender, non-distended, no palpable masses. :? Quarles catheter secured and draining light pink urine without clots. EXT:? No edema, clubbing or cyanosis. SKIN:? No rashes or lesions. NEURO:? No focal neurologic deficits, CN II-XII grossly intact. PSYCH:? Cooperative, appropriate mood and affect. [facility] Medical History History of COVID-19 (02/2023) SCC (squamous cell carcinoma) HTN (hypertension) Dizzy spells Right foot pain Acute sore throat Retinal and vitreous disorder Anxiety Enlarged prostate Diverticulosis Irregular heartbeat Heart murmur Left shoulder strain Rib pain on left side Right inguinal hernia History of urinary retention Benign prostatic hyperplasia Inguinal hernia Osteopenia Mumps (~1957) Measles (~1956) Chicken pox (~1954) Tinnitus (~1994) Surgical History Hx of hernia repair (10/04/19) History of orchiectomy, unilateral History of colonoscopy Anesthesia Undescended testicle (~1997) History of cataract removal with insertion of prosthetic lens (~2011) Family History Father Heart disease Mother No problems noted. Sister No problems noted. Sister No problems noted. Social History marital status: household members: spouse Smoking Status: Never smoker alcohol intake: current substance use type: does not use Assessment & Plan Assessment and plan (1) BPH loc w urin obs/LUTS: Status: Acute Plan: 73 y/o M w/ h/o BPH and bothersome LUTS who strongly desired surgical management via an Aquablation procedure.? He is POD 1 and is recovering as expected.? His quarles catheter was removed this AM. - Will continue to hydrate well - Will contact the nursing team every time that he urinates so that they can record his UOP and his PVR - Will check on him around lunch, should he be adequately emptying his bladder and his urine remains relatively clear will discharge home. Time-Based Coding :: [TOTAL MINUTES] spent with patient and on the chart (including review of chart, obtaining history, exam, reviewing outside data, placing orders, documenting exam and treatment plan, and counseling patient) on [DATE]. Quality VTE Deep Vein Thrombosis/Pulmonary Embolism Present on Admission: No IH PROFEE Charge codes Subsequent inpatient/observation care: [id number]
[2024-06-22] MEDS: PHENAZOPYRIDINE 100 MG TABLET 200 MG PO ×2 (10:15→16:23)
--- NOTE | 2024-06-22 11:51 | CM.DANOTE ---
B DCP Assessment Note pt is a 73yo M here POD1 aquablation with Dr. Miranda [facility] TOWER DRAGLINE OPERATOR reviewed EMR. Per chart review, pt lives in [place] with spouse Kasandra. Pt is indep/active at baseline. Plan is to see later today if pt able to urinate without blood/walking. If so, plan to dc today. per chart, pt urinating with small amounts of blood, unsure if that would be enough to keep him another day or if he would be still cleared to dc home. Per RN report, pt indep in room. anticipate no CM needs at this time. P: anticipate home with spouse support when medically stable, today.? no barriers to safe dc home with OP f/u identified at this time. CM team will continue to follow as needed LEROY Morales Discharge Planning/Care Management Advanced directive, confirm from FAMILY Start: 06/21/24 14:15 Freq: Q24H Status: Active Protocol: Document 06/21/24 14:15 JStella (Rec: 06/21/24 15:55 JJ [id number]) Advance Directive, confirm on record Time 15:55 Person contacted Pt Copy received No CM Discharge Assessment Start: 06/22/24 11:50 Freq: Status: Active Protocol: Document 06/22/24 11:50 (Rec: 06/22/24 11:51 [id number]) Discharge Planning Assessment Assigned Surgery Aid LEROY Carranza DPOA/Assigned Designee Name Kasandra, spouse Contact Information [phone] Advance Directives? Yes Advance Directives on File No History Provided By Patient Prior Living Arrangements House Household Members spouse Independent with ADL's Yes Is patient alert and oriented? Yes Discharge Plan Home Referrals Initiated None needed Review Status In Process Please Provide Date Initial DC 06/22/24 Assessment Was Performed Next Review Type Continued Stay Review Pre-Anesthesia Assessment Start: 06/16/24 08:50 Freq: Status: Active Protocol: Document 06/16/24 08:51 CAB (Rec: 06/16/24 09:20 CAB [id number]) Pre-Anesthesia Assessment PAC Comment Phone assessment with patient Patient Information Reviewed Via Phone Assessment Assessment Completed With Patient Primary Care Provider Rogers Salinas Seen Specialist in Last 12 Months Yes Specialist Seen Cableman,Opthamologist/ Gas Examiner,Urologist Primary Language Serbian Preferred Language Serbian Director Sales And Trade Marketing Required No Height 185.42 cm Weight 70.307 kg Body Mass Index (BMI) 20.4 Hearing Ability Normal Visual Assist Glasses Dentition Type Teeth, Natural Present Barriers to Learning None Hx Anesthesia Reactions No Hx Family Anesthesia Reaction No Hx Malignant Hyperthermia No Hx Blood Transfusions No Hx Blood Transfusion Reaction No Anesthesia Review Requested No Tapping Machine Operator No alcohol intake current alcohol intake frequency holidays/special occasions only Smoking Status Never smoker Substance Use Type marijuana Comment Advised not to smoke marijuana 24 hours prior Pain Present Denied Pain History of Falling (Recent or History of No ) Patient is completely paralyzed or No completely immobile Mental Status Oriented to own ability Is patient on oxygen? No Does patient have TABOR/SOB No Hx Sleep Apnea No CPAP/BIPAP use not prescribed Currently Taking a Beta Vicky No Can You Climb a Flight of Stairs Without Yes SOB Hx Chest Pain No Hx SOB No Hx Syncope or Dizziness No Anti-Coagulant Therapy No Has a Operations Research Scientist No Cardiac Testing No Hx Pacemaker/ICD No Pacemaker Rep Required? No Cardiac Clearance Received No Diet Type At Home Regular Dysphagia No Gastrointestinal Symptoms Reflux Bladder Pattern Nocturia,Retention Urinary Catheter Present No Hx Urinary Self Catheterization No Diabetes No Hx Drug Resistant Organism No Presence of External or Internal Medical Yes: Carlo eye IOLs Devices Received a COVID vaccine? Yes Comment No Covid symptoms in 2 months Marital Status Lives With spouse Current Living Arrangements House Number of Floors (Floors) Two Floors Support System Spouse Does the Patient Have Assistance After Yes Surgery Patient Discharge Plan Description Return Home Comment Pt advised same day surgery per surgeon Feels Safe in Current Environment Yes Been Physically Hurt or Threatened By a No Person in Current Environment Do you have thoughts of harming yourself None or others? Are you currently considering suicide? No Do you have a plan to hurt yourself or No Plan others? Do You Have Any Spiritual Beliefs That No May Affect Your HC Choices? Do You Have Any Cultural Practices That No May Affect Your HC Choices? Who Can We Speak to About Patient's Care Family, friends Identifying Code for Release of Patient Declines to issue Information Health Care Proxy/Next of Kin Kasandra () Health Care Proxy Emergency Contact Name Kasandra () Emergency Contact Advance Directives? Yes Advance Directives on File No Requested Patient Bring Advanced Yes Directives DOS Power of Casting And Pasting Supervisor Yes Power of Casting And Pasting Supervisor Name Kasandra () Power of Casting And Pasting Supervisor PAC Instructions Medications to take/avoid,No ETOH/petroleum product on skin DOS,NPO,Post-op transportation,Pre-surgical wash,Sturdy shoes/comfortable clothes,Do not bring valuables and remove jewelry
--- NOTE | 2024-06-22 16:26 | PC.NURSE ---
Pt is dressed and ready for discharge home with Spouse. IV has been removed. Went over d/c instructions with Pt and Spouse (Pat)-discussed d/c meds, time of last dose, reviewed stroke education, no lifting greater than 20#'s until cleared by MD, cautioned Pt to be aware of input vs output, drink plenty of fluids to prevent constipation or dehydration, monitor for inability to void, bladder distention, and increased clots, and follow up appointment. Pt denied further questions and was taken out via w/c by GRINDER SET UP OPERATOR INTERNAL to POV with Spouse and all belongings.
== END 2024-06-22 16:29 | disposition home or self-care (01) | DRG 714 ==
PROVIDERS: Admitting Provider Urology; PCP Family Medicine; Referring Provider Urology; Visit Provider Urology
PROC: 0VT08ZZ Resection of Prostate, Via Natural or Artificial Opening Endoscopic (ICD-10-PCS; CPT 52597; principal; 2024-06-21 09:45)
DX: N40.1 Benign prostatic hyperplasia with lower urinary tract symptoms (principal); R39.11 Hesitancy of micturition; R39.14 Feeling of incomplete bladder emptying; R39.12 Poor urinary stream; R35.0 Frequency of micturition; R35.1 Nocturia
CPT/HCPCS: 0421T; C2596; G0378; G0379; J0330; J0690; J1100; J2405; J2704; J3010; J3490

== ENCOUNTER → 2024-06-24 10:53 | Outpatient (CLI) | payer MEDICARE, SELFPAY ==
[2024-06-21 14:11] VITALS: BMI 19.8
== END ==
PROVIDERS: PCP Family Medicine; Visit Provider Urology
DX: N40.1 Benign prostatic hyperplasia with lower urinary tract symptoms (principal); R39.14 Feeling of incomplete bladder emptying; R39.12 Poor urinary stream; R35.0 Frequency of micturition; R35.1 Nocturia; R33.9 Retention of urine, unspecified
CPT/HCPCS: 51798; 81002; 87077; 87086; 87186; 99213

== ENCOUNTER → 2024-06-28 13:54 | Outpatient (CLI) | payer MEDICARE, SELFPAY ==
[2024-06-21 14:11] VITALS: BMI 19.8
== END ==
PROVIDERS: PCP Family Medicine; Visit Provider Urology
DX: R39.9 Unspecified symptoms and signs involving the genitourinary system (principal)
CPT/HCPCS: 87086

== ENCOUNTER → 2024-07-07 10:53 | Outpatient (CLI) | payer MEDICARE, SELFPAY ==
[2024-06-21 14:11] VITALS: BMI 19.8
== END ==
PROVIDERS: PCP Family Medicine; Visit Provider Urology
DX: N40.1 Benign prostatic hyperplasia with lower urinary tract symptoms (principal); R39.9 Unspecified symptoms and signs involving the genitourinary system
CPT/HCPCS: 51798; 81002; 87077; 87086; 87186

== ENCOUNTER → 2025-06-01 09:08 | Outpatient (CLI) | payer MEDICARE, OTHER, SELFPAY ==
[2024-06-21 14:11] VITALS: BMI 19.8
[2025-06-01 10:16] LABS: Add Manual Diff / Slide Review NO; Hematocrit 43.1 % (41-53); Hemoglobin 14.7 g/dL (13.5-17.5); Lymphocytes Absolute Auto 1200 /uL (1100-4500); Mean Corpuscular HGB Conc 34.1 % (30-36); Mean Corpuscular Hemoglobin 30.4 PG (26-34); Mean Corpuscular Volume 89.3 fL (80-100); Platelet Count 242 X10^3/uL (150-400)
[2025-06-01 10:40] LABS: Alanine Aminotransferase 16 IU/L (<50); Albumin 4.3 g/dL (3.5-5.0); Albumin Globulin Ratio 1.5 (1.0-2.8); Alkaline Phosphatase 63 U/L (38-126); Blood Urea Nitrogen 14 mg/dL (9-20); Calcium 9.5 mg/dL (8.4-10.2); Carbon Dioxide 27 mmol/L (22-32); Chloride 104 mmol/L (98-107); Cholesterol 205 mg/dL (140-199); Estimated Glomerular Filt Rate > 60 mL/min (>60); Globulin 2.8 g/dL (1.7-4.1); Glucose 105 mg/dL (70-99); HDL Cholesterol 88 mg/dL (40-60); HEMOLYSIS < 15 (0-50); Potassium 4.9 mmol/L (3.4-5.1); Sodium 138 mmol/L (137-145); Total Protein 7.1 g/dL (6.3-8.2); Triglycerides 74 mg/dL (35-150)
[2025-06-01 11:03] LABS: TSH w/ Reflex to FT4 1.94 uIU/mL (0.47-4.68)
== END ==
PROVIDERS: PCP Family Medicine; Referring Provider Family Medicine; Visit Provider Family Medicine
DX: E78.2 Mixed hyperlipidemia (principal); N40.1 Benign prostatic hyperplasia with lower urinary tract symptoms; Z12.5 Encounter for screening for malignant neoplasm of prostate
CPT/HCPCS: 36415; 80053; 80061; 84153; 84443; 85025; G0103